=== PATIENT | male | born 1960 | race Caucasian/White ===

== ENCOUNTER 2016-10-23 14:18 | Emergency (ER) | payer BC ==
--- NOTE | 2016-10-23 15:57 | CT ---
Head CT Technique: Multiple axial sections through the brain were obtained. Intravenous contrast was not utilized. Findings: Ventricles along with basal cisterns and sulci over the convexities are within normal limits for the patient's age. No abnormal parenchymal densities are seen. No evidence of intracranial hemorrhage. No midline shift or mass effect is seen. Bone window settings were reviewed which shows no discrete calvarial abnormality. Slight mucosal thickening is noted within the left ethmoid sinus. Mild mucosal thickening is partially visualized within the right maxillary sinus. Impression: 1. Minimal sinus findings likely pre-existing and chronic. 2. No acute intracranial abnormality is identified on noncontrast head CT study. Diagnostic code #2
--- NOTE | 2016-10-23 16:07 | EDM.PDOC ---
ED HPI GENERAL MEDICAL PROBLEM - General Chief Complaint: General Stated Complaint: HEADACHE CHEST PAIN Time Seen by Provider: 10/23/16 14:34 Source of Information: Reports: Patient, RN Notes Reviewed History Limitations: Reports: No Limitations - History of Present Illness INITIAL COMMENTS - FREE TEXT/NARRATIVE: The patient states that he feels "just like crap". He has had a headache, a throbbing/shooting sensation felt in the bilateral temples, on and off for about a month. It is improved with Excedrin migraine. He has felt pain under his left breast, sharp in character, worse with deep breaths, and better if he relaxes, for the past 2 days. He has been experiencing dyspnea for the past 2 days, and feels "wiped out", with no energy, for the past 2 days. He has had nausea, but no vomiting. No diaphoresis. He has been feeling anxious. No recent fever. No recent diarrhea or urinary symptoms. No recent palpitations. The patient states that he has had similar symptoms on and off since his 30s, and states that he had a medical evaluation when he was in his 30s and was told he had pleurisy. The patient does not currently have a PCP. His last general physical exam was 6 years ago, when he was 50 years old. Generalized Pain Score (Numeric/FACES): 3 - Related Data Allergies Allergy/AdvReac Type Severity Reaction Status Date / Time No Known Allergies Allergy Verified 10/23/16 14:29 Home Meds: Home Meds . [No Known Home Meds] 10/23/16 [History] Past Medical History HEENT History: Reports: Allergic Rhinitis Cardiovascular History: Reports: High Cholesterol (untreated) Endocrine/Metabolic History: Reports: Obesity/BMI 30+ - Past Surgical History HEENT Surgical History: Reports: Oral Surgery ([place] teeth extraction), Tonsillectomy Social & Family History - Family History Family Medical History: Noncontributory - Tobacco Use Smoking Status *Q: Current Every Day Smoker Years of Tobacco use: 40 Packs/Tins Daily: 0.5 - Caffeine Use Caffeine Use: Reports: Soda - Alcohol Use Alcohol Use History: Yes Alcohol Use Frequency: Socially - Recreational Drug Use Recreational Drug Use: Yes Drug Use in Last 12 Months: No Recreational Drug Type: Reports: Marijuana/Hashish - Living Situation & Occupation Living situation: Reports: , with Spouse 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) ED ROS GENERAL - Review of Systems Review Of Systems: See Below Constitutional: Reports: No Symptoms HEENT: Reports: Throat Pain Respiratory: Reports: Cough, Sputum (greenish) Cardiovascular: Reports: No Symptoms Endocrine: Reports: No Symptoms GI/Abdominal: Reports: No Symptoms : Reports: No Symptoms Musculoskeletal: Reports: No Symptoms Skin: Reports: No Symptoms Neurological: Reports: No Symptoms Psychiatric: Reports: No Symptoms Hematologic/Lymphatic: Reports: No Symptoms Immunologic: Reports: No Symptoms ED EXAM, GENERAL - Physical Exam Exam: See Below Exam Limited By: No Limitations General Appearance: Alert, WD/WN, No Apparent Distress Eye Exam: Bilateral Eye: Normal Inspection Ears: Normal External Exam, Hearing Grossly Normal Nose: Normal Inspection, No Blood Throat/Mouth: Normal Inspection, Normal Lips, Normal Voice, No Airway Compromise Head: Atraumatic, Normocephalic Neck: Normal Inspection, Full Range of Motion Respiratory/Chest: No Respiratory Distress, Lungs Clear, Normal Breath Sounds, No Accessory Muscle Use, Other (Reproducible tenderness to palpation with one finger at the 6th intercostal space, midclavicular line) Cardiovascular: Normal Peripheral Pulses, Regular Rate, Rhythm, No Gallop, No JVD, No Murmur, No Rub Peripheral Pulses: 4+: Radial (L), Radial (R) GI/Abdominal: Normal Bowel Sounds, Soft, Non-Tender, No Organomegaly, No Distention, No Abnormal Bruit, No Mass (Male) Exam: Deferred Rectal (Males) Exam: Deferred Back Exam: Normal Inspection, Full Range of Motion, NT Extremities: Normal Inspection, Normal Range of Motion, No Pedal Edema, Normal Capillary Refill Neurological: Alert, Oriented, Normal Cognition, No Motor/Sensory Deficits Psychiatric: Normal Affect Skin Exam: Warm, Dry, Intact, Normal Color, No Rash Lymphatic: No Adenopathy EKG INTERPRETATION EKG Date: 10/23/16 Time: 16:03 Rhythm: NSR Rate (Beats/Min): 75 [place]: Normal P-Wave: Present QRS: Normal ST-T: Normal QT: Normal Comparison: NA - No Prior EKG Course - Vital Signs Last Recorded V/S: Last Vital Signs Temp 37.1 C 10/23/16 14:26 Pulse 74 10/23/16 18:43 Resp 21 H 10/23/16 14:26 BP 126/81 08/15/17 18:43 Pulse Ox 97 10/23/16 18:43 - Orders/Labs/Meds Orders: Active Orders 24 hr Category Date Time Status EKG Documentation Completion [RC] STAT Care 10/23/16 15:22 Active Labs: Laboratory Tests 10/23/16 10/23/16 10/23/16 Range/Units 15:42 15:42 15:42 WBC 10.17 H (4.23-9.07) K/mm3 RBC 4.51 L (4.63-6.08) M/mm3 Hgb 14.8 (13.7-17.5) gm/L Hct 42.6 (40.1-51.0) % MCV 94.5 H (79.0-92.2) fl MCH 32.8 H (25.7-32.2) pg MCHC 34.7 (32.2-35.5) g/dl RDW Std Deviation 42.2 (35.1-43.9) fL Plt Count 186 (163-337) K/mm3 MPV 11.0 (9.4-12.3) fl Neutrophils % (Manual) 72 H (40-60) % Band Neutrophils % 0 (0-10) % Lymphocytes % (Manual) 24 (20-40) % Atypical Lymphs % 0 % Monocytes % (Manual) 3 (2-10) % Eosinophils % (Manual) 1 (0.8-7.0) % Basophils % (Manual) 0 L (0.2-1.2) Platelet Estimate Adequate Plt Morphology Comment Normal Anisocytosis 1+ slight RBC Morph Comment Not Reportable ESR (0-15) mm/hr PT 10.4 (8.0-13.0) SECONDS INR 0.96 APTT 29 (22-36) SECONDS D-Dimer, Quantitative 0.23 (0.19-0.59) mg/L Sodium 140 (136-145) mEq/L Potassium 3.9 (3.5-5.1) mEq/L Chloride 105 (98-107) mEq/L Carbon Dioxide 23 (21-32) mEq/L Anion Gap 15.9 H (5-15) BUN 21 H (7-18) mg/dL Creatinine 0.9 (0.7-1.3) mg/dL Est Cr Clr Drug Dosing 103.57 mL/min Estimated GFR (MDRD) > 60 (>60) mL/min BUN/Creatinine Ratio 23.3 H (14-18) Glucose 135 H (74-106) mg/dL Calcium 8.8 (8.5-10.1) mg/dL Total Bilirubin 0.4 (0.2-1.0) mg/dL AST TNP ALT TNP Alkaline Phosphatase 59 (46-116) U/L Troponin I < 0.017 (0.00-0.056) ng/mL C-Reactive Protein < 0.2 (<1.0) mg/dL Glp-R-Epusfwajcra Pept 34 (0-125) pg/mL Total Protein 7.2 (6.4-8.2) g/dl Albumin 4.1 (3.4-5.0) g/dl Globulin 3.1 gm/dL Albumin/Globulin Ratio 1.3 (1-2) / Range/Units 15:42 WBC (4.23-9.07) K/mm3 RBC (4.63-6.08) M/mm3 Hgb (13.7-17.5) gm/L Hct (40.1-51.0) % MCV (79.0-92.2) fl MCH (25.7-32.2) pg MCHC (32.2-35.5) g/dl RDW Std Deviation (35.1-43.9) fL Plt Count (163-337) K/mm3 MPV (9.4-12.3) fl Neutrophils % (Manual) (40-60) % Band Neutrophils % (0-10) % Lymphocytes % (Manual) (20-40) % Atypical Lymphs % % Monocytes % (Manual) (2-10) % Eosinophils % (Manual) (0.8-7.0) % Basophils % (Manual) (0.2-1.2) Platelet Estimate Plt Morphology Comment Anisocytosis RBC Morph Comment ESR 10 (0-15) mm/hr PT (8.0-13.0) SECONDS INR APTT (22-36) SECONDS D-Dimer, Quantitative (0.19-0.59) mg/L Sodium (136-145) mEq/L Potassium (3.5-5.1) mEq/L Chloride (98-107) mEq/L Carbon Dioxide (21-32) mEq/L Anion Gap (5-15) BUN (7-18) mg/dL Creatinine (0.7-1.3) mg/dL Est Cr Clr Drug Dosing mL/min Estimated GFR (MDRD) (>60) mL/min BUN/Creatinine Ratio (14-18) Glucose (74-106) mg/dL Calcium (8.5-10.1) mg/dL Total Bilirubin (0.2-1.0) mg/dL AST ALT Alkaline Phosphatase (46-116) U/L Troponin I (0.00-0.056) ng/mL C-Reactive Protein (<1.0) mg/dL Lis-J-Nbcygexxmel Pept (0-125) pg/mL Total Protein (6.4-8.2) g/dl Albumin (3.4-5.0) g/dl Globulin gm/dL Albumin/Globulin Ratio (1-2) - Re-Assessments/Exams Free Text/Narrative Re-Assessment/Exam: 10/23/16 15:40 Two-view chest radiograph appears to be grossly normal. Cardiac silhouette is within normal limits. No pulmonary vascular congestion. No pleural effusions. No focal infiltrate. No pneumothorax. Formal read per the Radiologist pending. 10/23/16 16:05 CT of the head without contrast is read by Dr. Borges as: 1. Minimal sinus findings likely pre-existing and chronic. 2. No acute intracranial abnormality is identified on noncontrast head CT study. 10/23/16 16:20 Notified by lab that the patient's blood sample is extremely lipemic, which will disallow evaluation of his transaminases, and may cause aberrations of other lab values. 10/23/16 18:17 Test results discussed with the patient and his . Based on the patient's history and physical examination, his left-sided chest pain is most likely due to an intercostal muscle spasm. I offered to prescribe a muscle relaxant, but the patient declined. I'm recommending he take [id number] ibuprofen. The cause of the patient's headache is not clear. It may be a tension type headache. With a normal ESR and CRP, temporal arteritis has been ruled out. Clinically, the patient's headache is not migrainous. As for the patient's general malaise and decreased energy, the patient may be suffering from a viral illness. No bacterial infection was found. With respect to the patient's lipemic blood sample, I will refer the patient to Dr. Orona in the clinic for further evaluation and treatment. Departure - Departure Time of Disposition: 18:19 Disposition: Home, Self-Care 01 Condition: Good Clinical Impression: Lipid disorder, Headache, Intercostal muscle pain, Malaise and fatigue - Discharge Information Instructions: General Headache Without Cause Referrals: PCP,None [Primary Care Provider] - Gloria Orona [Physician] - Forms: ED Department Discharge Additional Instructions: You were seen in the emergency room for generalized malaise, left-sided chest pain, and a headache. Workup in the ER included blood work, an ECG, a chest x-ray, and a CT scan of your head. Your entire workup was unremarkable, although we were notified by laboratory that your blood samples were lipemic (fatty). Your chest pain is MOST LIKELY due to a spasm of the muscles between your ribs. You were offered a muscle relaxant, but declined. We recommend you take over-the -counter ibuprofen. Your headache is MOST LIKELY a tension-type headache. We recommended he take dmhl-rjp-[id number] ibuprofen. The cause of your generalized malaise is not known. You may have a viral illness. We recommend you follow-up with Dr. Orona in the clinic, to address your lipemic blood. If any other problems, please do not hesitate to return to the ER. - My Orders Last 24 Hours: My Active Orders 10/23/16 15:22 EKG Documentation Completion [RC] STAT - Assessment/Plan Last 24 Hours: My Active Orders 10/23/16 15:22 EKG Documentation Completion [RC] STAT
--- NOTE | 2016-10-23 18:30 | CR ---
Chest: Two views of the chest were obtained. Comparison: No previous chest x-ray. Heart size and mediastinum are within normal limits. Lungs are clear. Bony structures appear within normal limits for the patient's age. Impression: 1. Nothing acute is identified on two-view chest x-ray. Diagnostic code #1
[2016-10-23 19:27] VITALS: BP 126/81
== END 2016-10-23 18:43 | disposition home or self-care (01) ==
LOC: JD.ED 14:18
DX: R51 Headache (principal); R07.82 Intercostal pain; E78.5 Hyperlipidemia, unspecified; R53.81 Other malaise; R53.83 Other fatigue; E78.00 Pure hypercholesterolemia, unspecified; F17.210 Nicotine dependence, cigarettes, uncomplicated; E66.9 Obesity, unspecified; Z98.890 Other specified postprocedural states
CPT/HCPCS: 36415; 70450; 70450-26; 71020; 71020-26; 80053; 83880; 84484; 85025; 85379; 85610; 85652; 85730; 86140; 93005; 99284; 99285-25

== ENCOUNTER 2016-11-28 06:45 | Day surgery (SDC) | payer BC ==
[~2016-11-28 06:45] MED LIST: Lactated Ringers 1,000 ML IV SCH; Lidocaine 1%/Sod Bicarbonate in NS 8.4% 1 ML Syringe PRN; Sodium Chloride 0.9% 10 ML Syringe FLUSH PRN
--- NOTE | 2016-11-28 07:27 | PCM.PREANE ---
Preanesthetic Assessment - Procedure Proposed Procedure: Diagnostic colonoscopy - Anesthesia/Transfusion/Family Hx Anesthesia History: No Prior Anesthesia Family History of Anesthesia Reaction: No Transfusion History: No Prior Transfusion(s) - Review of Systems General: No Symptoms Pulmonary: No Symptoms Cardiovascular: Other (hyperlipidemia ) Gastrointestinal: No Symptoms Neurological: No Symptoms Other: Reports: None - Physical Assessment NPO Status Date: 11/27/16 NPO Status Time: 22:30 O2 Sat by Pulse Oximetry: 94 Respiratory Rate: 16 Vital Signs: Last Vital Signs Temp 36.7 C 11/28/16 07:00 Pulse 74 11/28/16 07:00 Resp 16 11/28/16 07:00 BP 134/86 11/28/16 07:00 Pulse Ox 94 L 11/28/16 07:00 Height: 1.85 m Weight: 107.955 kg ASA Class: 2 Mental Status: Alert & Oriented x3 Airway Class: Mallampati = 3 Dentition: Reports: Normal Dentition Thyro-Mental Finger Breadths: 3 Mouth Opening Finger Breadths: 3 ROM/Head Extension: Full Lungs: Clear to Auscultation, Normal Respiratory Effort Cardiovascular: Regular Rate, Regular Rhythm - Allergies Allergies/Adverse Reactions: Allergies Allergy/AdvReac Type Severity Reaction Status Date / Time No Known Allergies Allergy Verified 11/27/16 14:43 - Blood Blood Available: No Product(s) Available: None - Anesthesia Plan Pre-Op Medication Ordered: None - Acknowledgements Anesthesia Type Planned: MAC Pt an Appropriate Candidate for the Planned Anesthesia: Yes Alternatives and Risks of Anesthesia Discussed w Pt/Guardian: Yes Pt/Guardian Understands and Agrees with Anesthesia Plan: Yes PreAnesthesia Questionnaire HEENT History: Reports: None Cardiovascular History: Reports: High Cholesterol Other Cardiovascular History: Pleurisy Respiratory History: Reports: None Gastrointestinal History: Reports: None Genitourinary History: Reports: None Musculoskeletal History: Reports: Other (See Below) Other Musculoskeletal History: Costochondritis Neurological History: Reports: Headaches, Chronic, Migraines Psychiatric History: Reports: None Endocrine/Metabolic History: Reports: None Hematologic History: Reports: None Immunologic History: Reports: None Oncologic (Cancer) History: Reports: None Dermatologic History: Reports: None - Infectious Disease History Infectious Disease History: Reports: None - Past Surgical History HEENT Surgical History: Reports: Tonsillectomy Cardiovascular Surgical History: Reports: None Respiratory Surgical History: Reports: None GI Surgical History: Reports: None Male Surgical History: Reports: Vasectomy Endocrine Surgical History: Reports: None Neurological Surgical History: Reports: None Musculoskeletal Surgical History: Reports: None Oncologic Surgical History: Reports: None Dermatological Surgical History: Reports: None - SUBSTANCE USE Smoking Status *Q: Current Every Day Smoker (41 years 0.5ppd) Tobacco Use Within Last Twelve Months: Cigarettes Second Hand Smoke Exposure: No Recreational Drug Use History: No Recreational Drug Type: Reports: Marijuana/Hashish - HOME MEDS Home Medications: Home Meds Rosuvastatin Calcium 10 mg PO BEDTIME 11/27/16 [History] - CURRENT (IN HOUSE) MEDS Current Meds: Current Medications Lactated Ringer's (Ringers, Lactated) 1,000 mls @ 125 mls/hr IV ASDIRECTED ADAM Stop: 11/28/16 23:00 Last Admin: 11/28/16 07:10 Dose: 125 mls/hr Lidocaine/Sodium Bicarbonate (Buffered Lidocaine 1% In Ns 8.4%) 0.25 ml .XX ONETIME PRN PRN Reason: Prior to IV Start Stop: 11/28/16 18:00 Last Admin: 11/28/16 07:10 Dose: 0.25 ml Sodium Chloride (Saline Flush) 10 ml FLUSH ASDIRECTED PRN PRN Reason: Keep Vein Open Stop: 11/28/16 18:00 Discontinued Medications Fentanyl (Sublimaze) Confirm Administered Dose 100 mcg .ROUTE .STK-MED ONE Stop: 11/28/16 07:33 Propofol (Diprivan 20 Ml) Confirm Administered Dose 200 mg .ROUTE .STK-MED ONE Stop: 11/28/16 07:33
[2016-11-28] MEDS ORDERED: fentaNYL 100 MCG/2 ML SDV ONE (07:32)
[2016-11-28] MEDS ORDERED: Propofol 200 MG/20 ML SDV ONE ×2 (07:32→08:38)
--- NOTE | 2016-11-28 08:29 | PCM48HPAN ---
Post Anesthesia Note - EVALUATION WITHIN 48HRS OF ANESTHETIC Vital Signs in Normal Range: Yes Patient Participated in Evaluation: Yes Respiratory Function Stable: Yes Airway Patent: Yes Cardiovascular Function Stable: Yes Hydration Status Stable: Yes Pain Control Satisfactory: Yes Nausea and Vomiting Control Satisfactory: Yes Mental Status Recovered: Yes
--- NOTE | 2016-11-28 08:35 | PCM.OPNOTE ---
- General Post-Op/Procedure Note Date of Surgery/Procedure: 11/28/16 Operative Procedure(s): Colonoscopy Findings: 1. Sigmoid diverticulosis -- uncomplicated; otherwise normal examination 2. Uncomplicated internal hemorrhoids Pre Op Diagnosis: Bright red blood per rectum Post-Op Diagnosis: 1. Sigmoid diverticulosis. 2. Uncomplicated internal hemorrhoids Anesthesia Technique: MAC, Moderate Sedation Primary Surgeon: Kendall Wild Pathology: None EBL in mLs: 0 Complications: None Condition: Good Free Text/Narrative:: After adequate IV sedation and analgesia was obtained with monitoring the patient was placed on his left side. Perianal inspection revealed the internal hemorrhoids. Digital rectal examination was otherwise unremarkable including an unremarkable prostate. A lubricated colonoscope was inserted into the rectum and advanced to the cecum without difficulty. The bowel preparation was excellent. The cecum, ascending colon, transverse and descending colons, were endoscopically normal with no mass lesion or inflammatory changes seen. The sigmoid had uncomplicated diverticuli as described above. The rectum was remarkable for internal hemorrhoids which were seen in the retroflexed view. Photographs were taken for the patient and for the medical record. Air was removed as I finished the procedure which he tolerated well.
[2016-11-28 09:28] VITALS: BP 121/81
== END 2016-11-28 09:15 | disposition home or self-care (01) ==
LOC: JD.SDS 06:45
PROVIDERS: ATTEND Surgery
PROC: 0DJD8ZZ Inspection of Lower Intestinal Tract, Via Natural or Artificial Opening Endoscopic (ICD-10-PCS; principal; 2016-11-28)
DX: K57.30 Diverticulosis of large intestine without perforation or abscess without bleeding (principal); K64.8 Other hemorrhoids; E78.5 Hyperlipidemia, unspecified; M94.0 Chondrocostal junction syndrome [Tietze]; F17.210 Nicotine dependence, cigarettes, uncomplicated; Z79.899 Other long term (current) drug therapy; Z90.89 Acquired absence of other organs; Z98.52 Vasectomy status
CPT/HCPCS: 45378; J3010; J7120; 00810; J2704

== ENCOUNTER 2018-04-03 17:04 | Inpatient (IN) | payer BC ==
[2018-04-03] MEDS ORDERED: cefTRIAXone 2 GM Vial IVPUSH SCH ×2 (18:00→20:00)
[2018-04-03] MEDS ORDERED: Dextrose 5%-0.45% NaCl 1,000 ML IV SCH (18:15)
[2018-04-03] MEDS ORDERED: Polyethylene Glycol 3350 Powder 17 GM Packet PO PRN (18:31)
[2018-04-03] MEDS ORDERED: Temazepam 7.5 MG Cap PO PRN (18:31)
[2018-04-03] MEDS ORDERED: Ondansetron 4 MG Tab.DIS PO PRN (18:31)
[2018-04-03] MEDS ORDERED: Bisacodyl 5 MG Tab PO PRN (18:31)
[2018-04-03] MEDS ORDERED: Ondansetron 4 MG/2 ML SDV IV PRN (18:31)
[2018-04-03] MEDS ORDERED: Docusate Sodium 100 MG Cap PO PRN (18:31)
[2018-04-03] MEDS ORDERED: 50% Dextrose in Water 50 ML Syringe IVPUSH PRN (18:38)
[2018-04-03] MEDS ORDERED: Metoprolol Tartrate 5 MG/5 ML SDV IVPUSH PRN (18:48)
[2018-04-03] MEDS ORDERED: hydrALAZINE 20 MG/ML SDV IVPUSH PRN (18:48)
--- NOTE | 2018-04-03 19:03 | PCM.HP ---
H&P History of Present Illness - General Date of Service: 04/03/18 Admit Problem/Dx: Admission Diagnosis/Problem Admission Diagnosis/Problem Pancreatitis Admission Diagnosis/Problem Pancreatitis Source of Information: Patient History Limitations: Reports: No Limitations - History of Present Illness Initial Comments - Free Text/Narative: This is a 57 yo male with past medical h/o HLD, diverticulosis who is a direct admit from clinic for pancreatitis. He has LLQ abdominal pain x 4 days- describes as constant and crampy, with movement making it worse. He also c/o constipation, decreased appetite, nausea. He denies F/C, vomiting, diarrhea, bloody stool. He denies similar pain in the past, no recent illness, no new foods. He is a social drinker. He has no history of abdominal surgery or gallstones. Initial labs obtained at clinic. CBC remarkable for WBC 13.1, RBC 4.31, Neut 74% , Lymph 12.9%, [place] 10.6%. His chemistry is remarkable for Glu 121, Cr 0.7. UA not impressive for UTI. CT Ab/pelvis at clinic shows pancreas remarkable for peripancreatic inflammation consistent with pancreatitis, stranding in the peripancreatic at is also present with no evidence of pseudocyst. He is subsequently admitted to the medical floor. He is a DNR/DNI. PCP is Dr. Lisa Aguilar. - Related Data Allergies/Adverse Reactions: Allergies Allergy/AdvReac Type Severity Reaction Status Date / Time No Known Allergies Allergy Verified 11/27/16 14:43 Home Medications: Home Meds Ascorbic Acid [Vitamin C] 1,000 mg PO DAILY 04/03/18 [History] Cholecalciferol (Vitamin D3) [Vitamin D3] 2,000 unit PO DAILY 04/03/18 [History] Fish Oil/[place]-3 Fatty Acids [Fish Oil] 1 each PO DAILY 04/03/18 [History] Methylsulfonylmethane [MSM] DAILY 04/03/18 [History] Multivitamin [Cwp-Fuodjf-Mxpgy] 1 each PO DAILY 04/03/18 [History] Past Medical History HEENT History: Reports: None, Hard of Hearing, Other (See Below) Other HEENT History: right sided hearing impaired Cardiovascular History: Reports: High Cholesterol Other Cardiovascular History: no medication Respiratory History: Reports: None Gastrointestinal History: Reports: Diverticulosis, Hemorrhoids, Pancreatitis Other Gastrointestinal History: Current diagnosis Pancreatitis Genitourinary History: Reports: None Musculoskeletal History: Reports: Arthritis, Other (See Below) Other Musculoskeletal History: Costochondritis Neurological History: Reports: Headaches, Chronic, Migraines Psychiatric History: Reports: None Endocrine/Metabolic History: Reports: None Hematologic History: Reports: None Immunologic History: Reports: None Oncologic (Cancer) History: Reports: None Dermatologic History: Reports: None - Infectious Disease History Infectious Disease History: Reports: Chicken Pox - Past Surgical History HEENT Surgical History: Reports: Tonsillectomy Cardiovascular Surgical History: Reports: None Respiratory Surgical History: Reports: None GI Surgical History: Reports: Colonoscopy Male Surgical History: Reports: Vasectomy Endocrine Surgical History: Reports: None Neurological Surgical History: Reports: None Musculoskeletal Surgical History: Reports: None Oncologic Surgical History: Reports: None Dermatological Surgical History: Reports: None Social & Family History - Family History Family Medical History: Noncontributory - Tobacco Use Smoking Status *Q: Former Smoker Years of Tobacco use: 43 Packs/Tins Daily: 5 Used Tobacco, but Quit: Yes Month/Year Tobacco Last Used: quit 2 weeks ago, Tobacco Use Comment: patient refuses nicotine patch but uses nicotine lozenge, will need to be checked by pharmacy Second Hand Smoke Exposure: No - Caffeine Use Caffeine Use: Reports: Soda - Alcohol Use Days Per Week of Alcohol Use: 3 Number of Drinks Per Day: 2 Total Drinks Per Week: 6 Date of Last Drink: 03/29/18 Time of Last Drink: 14:30 - Recreational Drug Use Recreational Drug Use: No - Living Situation & Occupation Living situation: Reports: , with Spouse 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 Denies: Fever, Chills HEENT: Reports: No Symptoms Pulmonary: Reports: No Symptoms. Denies: Shortness of Breath, Cough Cardiovascular: Reports: No Symptoms. Denies: Chest Pain, Blood Pressure Problem Gastrointestinal: Reports: Abdominal Pain (LLQ ), Constipation (last BM 4 days ago), Decreased Appetite, Nausea. Denies: Bloody Stool, Diarrhea, Vomiting Genitourinary: Reports: No Symptoms Musculoskeletal: Reports: No Symptoms Skin: Reports: No Symptoms Psychiatric: Reports: No Symptoms Neurological: Reports: No Symptoms Hematologic/Lymphatic: Reports: No Symptoms Immunologic: Reports: No Symptoms Exam - Exam Exam: See Below - Vital Signs Weight: 249 lb 1.6 oz - Exam Quality Assessment: DVT Prophylaxis General: Alert, Oriented, Cooperative, Moderate Distress HEENT: Conjunctiva Clear, EACs Clear, EOMI, Hearing Intact, Mucosa Moist & [place] , Nares Patent, Normal Nasal Septum, Posterior Pharynx Clear, PERRLA Neck: Supple, Trachea Midline, 2 Lungs: Clear to Auscultation, Normal Respiratory Effort Cardiovascular: Regular Rate, Regular Rhythm GI/Abdominal Exam: Normal Bowel Sounds, Soft, No Organomegaly, No Distention, No Abnormal Bruit, No Mass, Pelvis Stable, Tender (LLQ). No: Guarding, Rebound (Male) Exam: Deferred Rectal (Males) Exam: Deferred Back Exam: Normal Inspection, Full Range of Motion, NT Extremities: Normal Inspection, Normal Range of Motion, Non-Tender, No Pedal Edema, Normal Capillary Refill Peripheral Pulses: 2+: Posterior Tibial (L), Posterior Tibial (R), Dorsalis Pedis (L), Dorsalis Pedis (R) Skin: Warm, Dry, Intact Neurological: Cranial Nerves Intact (grossly) Neuro Extensive - Mental Status: Alert, Oriented x3, Normal Mood/Affect, Normal Cognition, Memory Intact Psychiatric: Alert, Normal Affect, Normal Mood - Problem List (1) Pancreatitis SNOMED Code(s): 97682692 ICD Code: K85.90 - ACUTE PANCREATITIS WITHOUT NECROSIS OR INFECTION, UNSP Status: Acute Priority: High Current Visit: Yes Qualifiers: Chronicity: acute Pancreatitis type: unspecified pancreatitis type Acute pancreatitis complication: unspecified Qualified Code(s): K85.90 - Acute pancreatitis without necrosis or infection, unspecified Problem List Initiated/Reviewed/Updated: Yes Orders Last 24hrs: Active Orders 24 hr Category Date Time Status Patient Status [ADT] Routine ADT 04/03/18 18:08 Active Antiembolic Devices [RC] PER UNIT ROUTINE Care 04/03/18 18:35 Active Blood Glucose Check, Bedside [RC] QIDACANDBED Care 04/03/18 18:37 Active Height and Weight [RC] DAILY Care 04/03/18 18:08 Active Intake and Output [RC] QSHIFT Care 04/03/18 18:10 Active May Shower [RC] ASDIRECTED Care 04/03/18 18:08 Active Notify Provider Consults [RC] ASDIRECTED Care 04/03/18 18:36 Active Oxygen Therapy [RC] PRN Care 04/03/18 18:08 Active Up ad Essie [RC] ASDIRECTED Care 04/03/18 18:08 Active VTE/DVT Education [RC] PER UNIT ROUTINE Care 04/03/18 18:08 Active Vital Signs [RC] Q4H Care 04/03/18 18:08 Active Consult to Network Control Supervisor [CONS] Routine Cons 04/03/18 18:31 Active Consult to Physician [CONS] Routine Cons 04/03/18 18:31 Active Nothing per Oral Now Diet [DIET] Diet 04/03/18 Dinner Active Abdomen Comp [US] Routine Exams 04/04/18 09:00 Ordered C-REACTIVE PROTEIN [CHEM] AM Lab 04/04/18 05:11 Ordered C-REACTIVE PROTEIN [CHEM] AM Lab 04/05/18 05:11 Ordered C-REACTIVE PROTEIN [CHEM] AM Lab 04/06/18 05:11 Ordered C-REACTIVE PROTEIN [CHEM] AM Lab 04/07/18 05:11 Ordered C-REACTIVE PROTEIN [CHEM] AM Lab 04/08/18 05:11 Ordered CBC WITH AUTO DIFF [HEME] AM Lab 04/04/18 05:11 Ordered CBC WITH AUTO DIFF [HEME] AM Lab 04/05/18 05:11 Ordered CBC WITH AUTO DIFF [HEME] AM Lab 04/06/18 05:11 Ordered CBC WITH AUTO DIFF [HEME] AM Lab 04/07/18 05:11 Ordered CBC WITH AUTO DIFF [HEME] AM Lab 04/08/18 05:11 Ordered COMPREHENSIVE METABOLIC PN,CMP [CHEM] AM Lab 04/04/18 05:11 Ordered COMPREHENSIVE METABOLIC PN,CMP [CHEM] AM Lab 04/05/18 05:11 Ordered COMPREHENSIVE METABOLIC PN,CMP [CHEM] AM Lab 04/06/18 05:11 Ordered COMPREHENSIVE METABOLIC PN,CMP [CHEM] AM Lab 04/07/18 05:11 Ordered COMPREHENSIVE METABOLIC PN,CMP [CHEM] AM Lab 04/08/18 05:11 Ordered CULTURE URINE [RM] Routine Lab 04/03/18 18:39 Ordered LIPASE [CHEM] AM Lab 04/04/18 05:11 Ordered LIPASE [CHEM] AM Lab 04/05/18 05:11 Ordered LIPASE [CHEM] AM Lab 04/06/18 05:11 Ordered LIPASE [CHEM] AM Lab 04/07/18 05:11 Ordered LIPASE [CHEM] AM Lab 04/08/18 05:11 Ordered LIPID PANEL [CHEM] AM Lab 04/04/18 05:11 Ordered MAGNESIUM [CHEM] AM Lab 04/04/18 05:11 Ordered MAGNESIUM [CHEM] AM Lab 04/05/18 05:11 Ordered MAGNESIUM [CHEM] AM Lab 04/06/18 05:11 Ordered MAGNESIUM [CHEM] AM Lab 04/07/18 05:11 Ordered MAGNESIUM [CHEM] AM Lab 04/08/18 05:11 Ordered UA W/MICROSCOPIC [URIN] Stat Lab 04/03/18 18:39 Ordered Acetaminophen [Tylenol] Med 04/03/18 18:22 Active 650 mg PO Q4H PRN Acetaminophen/HYDROcodone [[place] 325-5 MG] Med 04/03/18 18:31 Active 1 tab PO Q4H PRN Bisacodyl [Dulcolax] Med 04/03/18 18:31 Active 5 mg PO DAILY PRN Dextrose 5%-0.45% NaCl [Dextrose 5%-1/2 NS] 1,000 ml Med 04/03/18 18:15 Active IV ASDIRECTED Dextrose 50% in Water Med 04/03/18 18:38 Active 50 ml IVPUSH ASDIRECTED PRN Docusate Sodium [Colace] Med 04/03/18 18:31 Ordered 100 mg PO BID PRN Docusate Sodium/Sennosides [Senna Plus] Med 04/03/18 18:31 Ordered 1 tab PO BID PRN Famotidine [Pepcid] Med 04/04/18 09:00 Ordered 20 mg IVPUSH DAILY HYDROmorphone [Dilaudid] Med 04/03/18 18:31 Ordered 0.25 mg IVPUSH Q2H PRN Insulin Lispro [HumaLOG] Med 04/03/18 22:00 Ordered See Protocol SUBCUT QIDACANDBED Magnesium Hydroxide [Milk of Magnesia] Med 04/03/18 18:31 Ordered 30 ml PO Q12H PRN Metoprolol Tartrate [Lopressor] Med 04/03/18 18:48 Ordered 5 mg IVPUSH Q4H PRN Ondansetron [Zofran ODT] Med 04/03/18 18:31 Ordered 4 mg PO Q4H PRN Ondansetron [Zofran] Med 04/03/18 18:31 Ordered 4 mg IV Q4H PRN Polyethylene Glycol 3350 [MiraLAX] Med 04/03/18 18:31 Ordered 17 gm PO DAILY PRN Saccharomyces Boulardii [Florastor] Med 04/03/18 21:00 Ordered 250 mg PO BID Temazepam [Restoril] Med 04/03/18 18:31 Ordered 7.5 mg PO BEDTIME PRN cefTRIAXone [Rocephin] Med 04/03/18 18:00 Active 2 gm IVPUSH Q24H hydrALAZINE [Apresoline] Med 04/03/18 18:48 Ordered 10 mg IVPUSH Q4H PRN Sequential Compression Device [OM.PC] Per Unit Routine Oth 04/03/18 18:14 Ordered Resuscitation Status Routine Resus Stat 04/03/18 18:26 Ordered Medication Orders Acetaminophen (Tylenol) 650 mg PO Q4H PRN PRN Reason: Pain (Mild 1-3)/fever Hydrocodone Bitart/Acetaminophen ([place] 325-5 Mg) 1 tab PO Q4H PRN PRN Reason: Pain (moderate 4-6) Bisacodyl (Dulcolax) 5 mg PO DAILY PRN PRN Reason: Constipation Ceftriaxone Sodium (Rocephin) 2 gm IVPUSH Q24H [facility] Dextrose/Water (Dextrose 50% In Water) 50 ml IVPUSH ASDIRECTED PRN PRN Reason: Hypoglycemia Docusate Sodium (Colace) 100 mg PO BID PRN PRN Reason: Constipation Famotidine (Pepcid) 20 mg IVPUSH DAILY [facility] Hydralazine HCl (Apresoline) 10 mg IVPUSH Q4H PRN PRN Reason: Hypertension Hydromorphone HCl (Dilaudid) 0.25 mg IVPUSH Q2H PRN PRN Reason: Pain (severe 7-10) Dextrose/Sodium Chloride (Dextrose 5%-1/2 Ns) 1,000 mls @ 125 mls/hr IV ASDIRECTED [facility] Insulin Human Lispro (Humalog) 0 unit SUBCUT QIDACANDBED [facility]; Protocol Magnesium Hydroxide (Milk Of Magnesia) 30 ml PO Q12H PRN PRN Reason: Constipation Metoprolol Tartrate (Lopressor) 5 mg IVPUSH Q4H PRN PRN Reason: Tachycardia Ondansetron HCl (Zofran Odt) 4 mg PO Q4H PRN PRN Reason: nausea, able to take PO Ondansetron HCl (Zofran) 4 mg IV Q4H PRN PRN Reason: Nausea/Vomiting Polyethylene Glycol (Miralax) 17 gm PO DAILY PRN PRN Reason: Constipation Saccharomyces Boulardii (Florastor) 250 mg PO BID ADAM Senna/Docusate Sodium (Senna Plus) 1 tab PO BID PRN PRN Reason: Constipation Temazepam (Restoril) 7.5 mg PO BEDTIME PRN PRN Reason: Sleep Assessment/Plan Comment:: Assessment/Plan: Acute: Acute Pancreatitis * Risk factor: EtOH, h/o HLD * LLQ abdominal pain x 4 days; movement makes worse * He denies similar pain in the past, no recent illness, no new foods * He is a social drinker * He has no previous h/o abdominal surgery or gallstones * Afebrile, WBC 13.1 * CT Ab/pelvis at clinic 04/03/18: * Inflamed pancreas with peripancreatic stranding with fluid. Associated retroperitoneal lymphadenopathy is present. * Hepatic steatosis * No evidence of appendicitis or diverticulitis * Lipid panel pending * Recommend starting Statin if needed * EtOH pending * Lipase pending * U/S Abdomen to r/o gallstone pending * Consult General Surgeon Dr. Lynn * NPO; IVF * Pain management PRN Constipation * Likely 2/2 decreased intake * Advance diet as tolerated * Stool softener/laxatives PRN Chronic: HLD; not currently on medication Diverticulosis- colonoscopy 18mo ago Plan: Admit to Medical Floor Routine AM Labs NPO, IVF DVT/GI prophylaxis Code Status: DNR/DNI; PCP: Dr. Lisa Aguilar
[2018-04-03] MEDS: HYDROmorphone 1 MG/ML Syringe IVPUSH PRN (19:12)
[2018-04-03] MEDS: Magnesium Hydroxide 400 MG/5 ML Susp 30 ML Cup PO PRN (20:40)
[2018-04-03] MEDS: cefTRIAXone 2 GM in Sodium Chloride 0.9% 100 ML IV SCH (20:40)
[2018-04-03] MEDS: Dextrose 5%-0.45% NaCl 1,000 ML IV SCH (20:40)
[2018-04-03] MEDS: Saccharomyces Boulardii (Probiotic) 250 MG Cap PO SCH (20:41)
[2018-04-04] MEDS: Insulin Lispro 100 Unit/ML 3 ML KwikPen SUBCUT SCH ×2 (03:49→06:31)
[2018-04-04] MEDS: Dextrose 5%-0.45% NaCl 1,000 ML IV SCH (04:42)
[2018-04-04] MEDS: HYDROmorphone 1 MG/ML Syringe IVPUSH PRN (04:54)
--- NOTE | 2018-04-04 06:56 | CONS ---
CONSULTING PHYSICIAN: Khoa Lynn MD DATE OF CONSULTATION: 04/03/2018 HISTORY OF PRESENT ILLNESS: This is a 57-year-old patient with abdominal pain. I was asked to see. He stated that the abdominal pain began Saturday about 5 days ago. It was started in the afternoon, it was intermittent and then Saturday it was constant and steady pain located just below the umbilicus in the midline without any radiation. The pain persisted after some coaching from his and daughter. He came into the walk-in clinic today and he was worked up. He was found on CT scan that he had pancreatitis, although his amylase was normal at 57. The patient states that he is beginning to notice pain when hitting the bumps in the car in the abdomen and that the appetite was poor and he is feeling some abdominal bloating and some constipation. Denied any chills or fever and vomiting and states that he has not ever had this pain before. He states that he drinks socially 2 or 3 drinks about twice a week. 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 No smoking. He has smoked marijuana for many many years. MEDICATIONS: None. FAMILY HISTORY: Negative for gallstones. REVIEW OF SYSTEMS: No chest pain or shortness of breath, cough, hoarseness, wheezing, fever, or chills. No diarrhea. Does have constipation. There was no radiation of the pain. He has some nausea. No vomiting and no lower extremity swelling or edema. SOCIAL HISTORY: The patient does not smoke. PHYSICAL EXAMINATION: GENERAL: Reveals alert and cooperative male. VITAL SIGNS: Temperature afebrile. Pulse in the 90s. EYES: Sclerae white. Extraocular muscle motion normal. ORAL CAVITY: Healthy mucous membrane with mouth and tongue. NECK: Supple. No nodes. No thyromegaly. Trachea midline. LUNGS: Clear. Normal breath sounds and no dullness in the base. BACK: No tenderness on palpation of the back and the flank. HEART: Heart tones regular rate. No S3, S4, jugular venous distention or murmurs. ABDOMEN: Shows exquisite tenderness in the epigastrium, right upper quadrant. No umbilical, inguinal hernias, ventral hernias. Lower abdomen is unremarkable. EXTREMITIES: Upper and lower extremities; no angulation deformities. No sensorineural deficit. No edema. PSYCHIATRIC: Normal. SKIN: Warm and dry. DIAGNOSTIC DATA: Laboratory data shows calcium is normal. Bilirubin and liver enzymes are normal. CT scan shows stranding around the appendix and some fatty infiltrated liver. ASSESSMENT: Pancreatitis. Cause not clear at this time. PLAN: We will follow with you. CHARLES /[id number]
--- NOTE | 2018-04-04 08:00 | PCM.CONSN ---
- General Info Date of Service: 04/04/18 Functional Status: Reports: Pain Controlled - Review of Systems General: Reports: No Symptoms Pulmonary: Reports: No Symptoms Gastrointestinal: Reports: Abdominal Pain (improved with pain medications ) - Patient Data Vitals - Most Recent: Last Vital Signs Temp 98.9 F 04/03/18 20:54 Pulse 83 04/03/18 20:54 Resp 16 04/03/18 20:54 BP 141/85 H 04/03/18 20:54 Pulse Ox 94 L 04/03/18 20:54 Weight - Most Recent: 110.858 kg I&O - Last 24 Hours: Intake & Output 04/03/18 04/03/18 04/04/18 15:59 23:59 07:59 Intake Total 1045 Output Total 825 Balance 220 Lab Results Last 24 Hours: Laboratory Results - last 24 hr 04/03/18 04/03/18 04/03/18 Range/Units 20:14 21:55 23:40 WBC (4.23-9.07) K/mm3 RBC (4.63-6.08) M/mm3 Hgb (13.7-17.5) gm/L Hct (40.1-51.0) % MCV (79.0-92.2) fl MCH (25.7-32.2) pg MCHC (32.2-35.5) g/dl RDW Std Deviation (35.1-43.9) fL Plt Count (163-337) K/mm3 MPV (9.4-12.3) fl Neut % (Auto) (34.0-67.9) % Lymph % (Auto) (21.8-53.1) % [place] % (Auto) (5.3-12.2) % Eos % (Auto) (0.8-7.0) Baso % (Auto) (0.1-1.2) % Neut # (Auto) (1.78-5.38) K/mm3 Lymph # (Auto) (1.32-3.57) K/mm3 [place] # (Auto) (0.30-0.82) K/mm3 Eos # (Auto) (0.04-0.54) K/mm3 Baso # (Auto) (0.01-0.08) K/mm3 Sodium (136-145) mEq/L Potassium (3.5-5.1) mEq/L Chloride (98-107) mEq/L Carbon Dioxide (21-32) mEq/L Anion Gap (5-15) BUN (7-18) mg/dL Creatinine (0.7-1.3) mg/dL Est Cr Clr Drug Dosing mL/min Estimated GFR (MDRD) (>60) mL/min BUN/Creatinine Ratio (14-18) Glucose (74-106) mg/dL POC Glucose 116 H (70-105) mg/dL Calcium (8.5-10.1) mg/dL Magnesium (1.8-2.4) mg/dl Total Bilirubin (0.2-1.0) mg/dL AST (15-37) U/L ALT (16-63) U/L Alkaline Phosphatase (46-116) U/L C-Reactive Protein (<1.0) mg/dL Total Protein (6.4-8.2) g/dl Albumin (3.4-5.0) g/dl Globulin gm/dL Albumin/Globulin Ratio (1-2) Triglycerides (<150) mg/dL Cholesterol (<200) mg/dL LDL Cholesterol Direct (<100) mg/dL HDL Cholesterol (40-59) mg/dL Lipase (73-393) U/L Urine Color Yellow (Yellow) Urine Appearance Slt cloudy H (Clear) Urine pH 7.0 (5.0-8.0) Ur Specific [place] 1.015 (1.005-1.030) Urine Protein 1+ H (Negative) Urine Glucose (UA) Negative (Negative) Urine Ketones Negative (Negative) Urine Occult Blood Trace-intact H (Negative) Urine Nitrite Negative (Negative) Urine Bilirubin Negative (Negative) Urine Urobilinogen 4.0 H (0.2-1.0) Ur Leukocyte Esterase Negative (Negative) Urine RBC 0-5 (0-5) /hpf Urine WBC 0-5 (0-5) /hpf Ur Epithelial Cells 0-5 (0-5) /hpf Ur Squamous Epith Cells 0-5 (0-5) /hpf Urine Bacteria Not seen (FEW) /hpf Urine Mucus Not seen (FEW) /hpf Ethyl Alcohol 0.00 (0.00) gm% 04/04/18 04/04/18 04/04/18 Range/Units 05:30 05:30 06:26 WBC 10.92 H (4.23-9.07) K/mm3 RBC 3.97 L (4.63-6.08) M/mm3 Hgb 12.6 L (13.7-17.5) gm/L Hct 38.4 L (40.1-51.0) % MCV 96.7 H (79.0-92.2) fl MCH 31.7 (25.7-32.2) pg MCHC 32.8 (32.2-35.5) g/dl RDW Std Deviation 42.6 (35.1-43.9) fL Plt Count 194 (163-337) K/mm3 MPV 11.2 (9.4-12.3) fl Neut % (Auto) 74.2 H (34.0-67.9) % Lymph % (Auto) 10.4 L (21.8-53.1) % [place] % (Auto) 12.0 (5.3-12.2) % Eos % (Auto) 2.9 (0.8-7.0) Baso % (Auto) 0.3 (0.1-1.2) % Neut # (Auto) 8.10 H (1.78-5.38) K/mm3 Lymph # (Auto) 1.14 L (1.32-3.57) K/mm3 [place] # (Auto) 1.31 H (0.30-0.82) K/mm3 Eos # (Auto) 0.32 (0.04-0.54) K/mm3 Baso # (Auto) 0.03 (0.01-0.08) K/mm3 Sodium 137 (136-145) mEq/L Potassium 3.6 (3.5-5.1) mEq/L Chloride 102 (98-107) mEq/L Carbon Dioxide 25 (21-32) mEq/L Anion Gap 13.6 (5-15) BUN 13 (7-18) mg/dL Creatinine 0.8 (0.7-1.3) mg/dL Est Cr Clr Drug Dosing 115.13 mL/min Estimated GFR (MDRD) > 60 (>60) mL/min BUN/Creatinine Ratio 16.3 (14-18) Glucose 146 H (74-106) mg/dL POC Glucose 165 H (70-105) mg/dL Calcium 8.5 (8.5-10.1) mg/dL Magnesium 2.2 (1.8-2.4) mg/dl Total Bilirubin 0.5 (0.2-1.0) mg/dL AST 20 (15-37) U/L ALT 40 (16-63) U/L Alkaline Phosphatase 62 (46-116) U/L C-Reactive Protein 14.1 H* (<1.0) mg/dL Total Protein 7.2 (6.4-8.2) g/dl Albumin 3.1 L (3.4-5.0) g/dl Globulin 4.1 gm/dL Albumin/Globulin Ratio 0.8 L (1-2) Triglycerides 221 H (<150) mg/dL Cholesterol 197 (<200) mg/dL LDL Cholesterol Direct 142 H* (<100) mg/dL HDL Cholesterol 25.0 L (40-59) mg/dL Lipase 218 (73-393) U/L Urine Color (Yellow) Urine Appearance (Clear) Urine pH (5.0-8.0) Ur Specific [place] (1.005-1.030) Urine Protein (Negative) Urine Glucose (UA) (Negative) Urine Ketones (Negative) Urine Occult Blood (Negative) Urine Nitrite (Negative) Urine Bilirubin (Negative) Urine Urobilinogen (0.2-1.0) Ur Leukocyte Esterase (Negative) Urine RBC (0-5) /hpf Urine WBC (0-5) /hpf Ur Epithelial Cells (0-5) /hpf Ur Squamous Epith Cells (0-5) /hpf Urine Bacteria (FEW) /hpf Urine Mucus (FEW) /hpf Ethyl Alcohol (0.00) gm% Med Orders - Current: Current Medications Acetaminophen (Tylenol) 650 mg PO Q4H PRN PRN Reason: Pain (Mild 1-3)/fever Hydrocodone Bitart/Acetaminophen ([place] 325-5 Mg) 1 tab PO Q4H PRN PRN Reason: Pain (moderate 4-6) Bisacodyl (Dulcolax) 5 mg PO DAILY PRN PRN Reason: Constipation Dextrose/Water (Dextrose 50% In Water) 50 ml IVPUSH ASDIRECTED PRN PRN Reason: Hypoglycemia Docusate Sodium (Colace) 100 mg PO BID PRN PRN Reason: Constipation Famotidine (Pepcid) 20 mg IVPUSH DAILY [facility] Hydralazine HCl (Apresoline) 10 mg IVPUSH Q4H PRN PRN Reason: Hypertension Hydromorphone HCl (Dilaudid) 0.25 mg IVPUSH Q2H PRN PRN Reason: Pain (severe 7-10) Last Admin: 04/04/18 04:54 Dose: 0.25 mg Ceftriaxone Sodium 2 gm/ (Sodium Chloride) 100 mls @ 200 mls/hr IV Q24H [facility] Last Admin: 04/03/18 20:40 Dose: 200 mls/hr Dextrose/Sodium Chloride (Dextrose 5%-1/2 Ns) 1,000 mls @ 125 mls/hr IV ASDIRECTED [facility] Last Admin: 04/04/18 04:42 Dose: 125 mls/hr Insulin Human Lispro (Humalog) 0 unit SUBCUT QIDACANDBED [facility]; Protocol Last Admin: 04/04/18 06:31 Dose: 1 unit Magnesium Hydroxide (Milk Of Magnesia) 30 ml PO Q12H PRN PRN Reason: Constipation Last Admin: 04/03/18 20:40 Dose: 30 ml Metoprolol Tartrate (Lopressor) 5 mg IVPUSH Q4H PRN PRN Reason: Tachycardia Ondansetron HCl (Zofran Odt) 4 mg PO Q4H PRN PRN Reason: nausea, able to take PO Ondansetron HCl (Zofran) 4 mg IV Q4H PRN PRN Reason: Nausea/Vomiting Polyethylene Glycol (Miralax) 17 gm PO DAILY PRN PRN Reason: Constipation Saccharomyces Boulardii (Florastor) 250 mg PO BID [facility] Last Admin: 04/03/18 20:41 Dose: 250 mg Senna/Docusate Sodium (Senna Plus) 1 tab PO BID PRN PRN Reason: Constipation Temazepam (Restoril) 7.5 mg PO BEDTIME PRN PRN Reason: Sleep - Exam GI/Abdominal Exam: Tender (tenderness unchanged ) Consult PN Assessment/Plan Procedures: Procedures ASSAY OF NATRIURETIC PEPTIDE (10/23/16) ASSAY OF TROPONIN QUANT (10/23/16) C-REACTIVE PROTEIN (10/23/16) CHEST X-RAY 2VW FRONTAL&LATL (10/23/16) COMPLETE CBC W/AUTO DIFF WBC (10/23/16) COMPREHEN METABOLIC PANEL (11/02/16) CT HEAD/BRAIN W/O DYE (10/23/16) DIAGNOSTIC COLONOSCOPY (11/28/16) ELECTROCARDIOGRAM TRACING (10/23/16) EMERGENCY DEPT VISIT (10/23/16) FIBRIN DEGRADATION QUANT (10/23/16) LIPID PANEL (11/02/16) PROTHROMBIN TIME (10/23/16) RBC SED RATE AUTOMATED (10/23/16) ROUTINE VENIPUNCTURE (11/02/16) THROMBOPLASTIN TIME PARTIAL (10/23/16) Problem List Initiated/Reviewed/Updated: Yes My Orders Last 24 Hours: US is pending his amylase and LIpase are noram the Dx of pancreatitis rest on the CT scan report and pt abdominal tenderness and hx of pain developing since The week end MARCELLE
[2018-04-04] MEDS: Saccharomyces Boulardii (Probiotic) 250 MG Cap PO SCH ×2 (08:55→20:51)
[2018-04-04] MEDS ORDERED: Famotidine 20 MG/2 ML SDV IVPUSH SCH (09:00)
--- NOTE | 2018-04-04 09:13 | US ---
Abdominal ultrasound: Multiple real-time images of the abdomen were obtained. Comparison: Previous outside CT exam performed at [facility] and dated 04/03/18. Liver appears echogenic compatible with fatty infiltration. Small low-density finding is noted within the left lobe measuring 9.4 mm which is felt compatible with a small cyst. No other focal abnormality is appreciated. Portions of the pancreas are obscured from bowel gas. Visualized portions of the pancreas shows no discrete abnormality. Gallbladder contains no shadowing gallstones. No gallbladder wall thickening or biliary duct dilatation is seen. Kidneys show no hydronephrosis or mass. Right kidney length is 13.1 cm and left kidney length is 13.3 cm. Spleen size is normal. Inferior vena cava is patent. Portal vein shows normal hepatopedal flow. Aorta shows no aneurysm. Impression: 1. Fatty infiltration within the liver. Small cyst within the left lobe. 2. No gallstones, gallbladder wall thickening or biliary duct dilatation. 3. Incompletely seen pancreas. Visualized portions of the pancreas appear within normal limits. Diagnostic code #2
[2018-04-04] MEDS: Fenofibrate 54 MG Tab PO SCH (13:06)
[2018-04-04] MEDS: Acetaminophen/HYDROcodone 325-5 MG Tab PO PRN (15:14)
[2018-04-04] MEDS: Magnesium Hydroxide 400 MG/5 ML Susp 30 ML Cup PO PRN (15:34)
--- NOTE | 2018-04-04 16:25 | PCM.PN ---
- General Info Date of Service: 04/04/18 Admission Dx/Problem (Free Text): Admission Diagnosis/Problem Admission Diagnosis/Problem Pancreatitis Admission Diagnosis/Problem Pancreatitis Subjective Update: In to see Hans. He is sitting up in bed visiting with his . He states he is feeling much better today, pain about 4/10, and main complaint is diarrhea and bloating. He did advance to clear liquid diet today. No other concerns at this time. All questions and concerns were answered. No concerns from nursing. Will keep clear liquid diet for now and advance as tolerated. Did talk about how his triglycerides are elevated and how that is likely the cause of his pancreatitis. He states he has had this issue since his 20's and stops taking his HLD medications bc "I feel better". He now understands the importance of taking control of his diet and taking his medications are and will be started on fenofibrate. Functional Status: Reports: Pain Controlled, Tolerating Diet, Ambulating, Urinating - Review of Systems General: Reports: No Symptoms. Denies: Fever, Chills HEENT: Reports: No Symptoms Pulmonary: Reports: No Symptoms. Denies: Shortness of Breath, Cough Cardiovascular: Reports: No Symptoms. Denies: Chest Pain Gastrointestinal: Reports: Abdominal Pain (epigastric radiating to LLQ, improving), Constipation (last normal BM Saturday, diarrhea today), Decreased Appetite, Diarrhea, Other (bloating). Denies: Nausea, Vomiting Genitourinary: Reports: No Symptoms Musculoskeletal: Reports: No Symptoms Skin: Reports: No Symptoms Neurological: Reports: No Symptoms Psychiatric: Reports: No Symptoms - Patient Data Vitals - Most Recent: Last Vital Signs Temp 98.9 F 04/03/18 20:54 Pulse 83 04/03/18 20:54 Resp 16 04/03/18 20:54 BP 141/85 H 04/03/18 20:54 Pulse Ox 94 L 04/03/18 20:54 Weight - Most Recent: 244 lb 6.401 oz I&O - Last 24 Hours: Intake & Output 04/04/18 04/04/18 04/04/18 06:59 14:59 22:59 Intake Total 1045 320 Output Total 825 Balance 220 320 Lab Results Last 24 Hours: Laboratory Results - last 24 hr 04/03/18 04/03/18 04/03/18 Range/Units 20:14 21:55 23:40 WBC (4.23-9.07) K/mm3 RBC (4.63-6.08) M/mm3 Hgb (13.7-17.5) gm/L Hct (40.1-51.0) % MCV (79.0-92.2) fl MCH (25.7-32.2) pg MCHC (32.2-35.5) g/dl RDW Std Deviation (35.1-43.9) fL Plt Count (163-337) K/mm3 MPV (9.4-12.3) fl Neut % (Auto) (34.0-67.9) % Lymph % (Auto) (21.8-53.1) % [place] % (Auto) (5.3-12.2) % Eos % (Auto) (0.8-7.0) Baso % (Auto) (0.1-1.2) % Neut # (Auto) (1.78-5.38) K/mm3 Lymph # (Auto) (1.32-3.57) K/mm3 [place] # (Auto) (0.30-0.82) K/mm3 Eos # (Auto) (0.04-0.54) K/mm3 Baso # (Auto) (0.01-0.08) K/mm3 Sodium (136-145) mEq/L Potassium (3.5-5.1) mEq/L Chloride (98-107) mEq/L Carbon Dioxide (21-32) mEq/L Anion Gap (5-15) BUN (7-18) mg/dL Creatinine (0.7-1.3) mg/dL Est Cr Clr Drug Dosing mL/min Estimated GFR (MDRD) (>60) mL/min BUN/Creatinine Ratio (14-18) Glucose (74-106) mg/dL POC Glucose 116 H (70-105) mg/dL Calcium (8.5-10.1) mg/dL Magnesium (1.8-2.4) mg/dl Total Bilirubin (0.2-1.0) mg/dL AST (15-37) U/L ALT (16-63) U/L Alkaline Phosphatase (46-116) U/L C-Reactive Protein (<1.0) mg/dL Total Protein (6.4-8.2) g/dl Albumin (3.4-5.0) g/dl Globulin gm/dL Albumin/Globulin Ratio (1-2) Triglycerides (<150) mg/dL Cholesterol (<200) mg/dL LDL Cholesterol Direct (<100) mg/dL HDL Cholesterol (40-59) mg/dL Lipase (73-393) U/L Urine Color Yellow (Yellow) Urine Appearance Slt cloudy H (Clear) Urine pH 7.0 (5.0-8.0) Ur Specific [place] 1.015 (1.005-1.030) Urine Protein 1+ H (Negative) Urine Glucose (UA) Negative (Negative) Urine Ketones Negative (Negative) Urine Occult Blood Trace-intact H (Negative) Urine Nitrite Negative (Negative) Urine Bilirubin Negative (Negative) Urine Urobilinogen 4.0 H (0.2-1.0) Ur Leukocyte Esterase Negative (Negative) Urine RBC 0-5 (0-5) /hpf Urine WBC 0-5 (0-5) /hpf Ur Epithelial Cells 0-5 (0-5) /hpf Ur Squamous Epith Cells 0-5 (0-5) /hpf Urine Bacteria Not seen (FEW) /hpf Urine Mucus Not seen (FEW) /hpf Ethyl Alcohol 0.00 (0.00) gm% 04/04/18 04/04/18 04/04/18 Range/Units 05:30 05:30 06:26 WBC 10.92 H (4.23-9.07) K/mm3 RBC 3.97 L (4.63-6.08) M/mm3 Hgb 12.6 L (13.7-17.5) gm/L Hct 38.4 L (40.1-51.0) % MCV 96.7 H (79.0-92.2) fl MCH 31.7 (25.7-32.2) pg MCHC 32.8 (32.2-35.5) g/dl RDW Std Deviation 42.6 (35.1-43.9) fL Plt Count 194 (163-337) K/mm3 MPV 11.2 (9.4-12.3) fl Neut % (Auto) 74.2 H (34.0-67.9) % Lymph % (Auto) 10.4 L (21.8-53.1) % [place] % (Auto) 12.0 (5.3-12.2) % Eos % (Auto) 2.9 (0.8-7.0) Baso % (Auto) 0.3 (0.1-1.2) % Neut # (Auto) 8.10 H (1.78-5.38) K/mm3 Lymph # (Auto) 1.14 L (1.32-3.57) K/mm3 [place] # (Auto) 1.31 H (0.30-0.82) K/mm3 Eos # (Auto) 0.32 (0.04-0.54) K/mm3 Baso # (Auto) 0.03 (0.01-0.08) K/mm3 Sodium 137 (136-145) mEq/L Potassium 3.6 (3.5-5.1) mEq/L Chloride 102 (98-107) mEq/L Carbon Dioxide 25 (21-32) mEq/L Anion Gap 13.6 (5-15) BUN 13 (7-18) mg/dL Creatinine 0.8 (0.7-1.3) mg/dL Est Cr Clr Drug Dosing 115.13 mL/min Estimated GFR (MDRD) > 60 (>60) mL/min BUN/Creatinine Ratio 16.3 (14-18) Glucose 146 H (74-106) mg/dL POC Glucose 165 H (70-105) mg/dL Calcium 8.5 (8.5-10.1) mg/dL Magnesium 2.2 (1.8-2.4) mg/dl Total Bilirubin 0.5 (0.2-1.0) mg/dL AST 20 (15-37) U/L ALT 40 (16-63) U/L Alkaline Phosphatase 62 (46-116) U/L C-Reactive Protein 14.1 H* (<1.0) mg/dL Total Protein 7.2 (6.4-8.2) g/dl Albumin 3.1 L (3.4-5.0) g/dl Globulin 4.1 gm/dL Albumin/Globulin Ratio 0.8 L (1-2) Triglycerides 221 H (<150) mg/dL Cholesterol 197 (<200) mg/dL LDL Cholesterol Direct 142 H* (<100) mg/dL HDL Cholesterol 25.0 L (40-59) mg/dL Lipase 218 (73-393) U/L Urine Color (Yellow) Urine Appearance (Clear) Urine pH (5.0-8.0) Ur Specific [place] (1.005-1.030) Urine Protein (Negative) Urine Glucose (UA) (Negative) Urine Ketones (Negative) Urine Occult Blood (Negative) Urine Nitrite (Negative) Urine Bilirubin (Negative) Urine Urobilinogen (0.2-1.0) Ur Leukocyte Esterase (Negative) Urine RBC (0-5) /hpf Urine WBC (0-5) /hpf Ur Epithelial Cells (0-5) /hpf Ur Squamous Epith Cells (0-5) /hpf Urine Bacteria (FEW) /hpf Urine Mucus (FEW) /hpf Ethyl Alcohol (0.00) gm% 04/04/18 Range/Units 11:49 WBC (4.23-9.07) K/mm3 RBC (4.63-6.08) M/mm3 Hgb (13.7-17.5) gm/L Hct (40.1-51.0) % MCV (79.0-92.2) fl MCH (25.7-32.2) pg MCHC (32.2-35.5) g/dl RDW Std Deviation (35.1-43.9) fL Plt Count (163-337) K/mm3 MPV (9.4-12.3) fl Neut % (Auto) (34.0-67.9) % Lymph % (Auto) (21.8-53.1) % [place] % (Auto) (5.3-12.2) % Eos % (Auto) (0.8-7.0) Baso % (Auto) (0.1-1.2) % Neut # (Auto) (1.78-5.38) K/mm3 Lymph # (Auto) (1.32-3.57) K/mm3 [place] # (Auto) (0.30-0.82) K/mm3 Eos # (Auto) (0.04-0.54) K/mm3 Baso # (Auto) (0.01-0.08) K/mm3 Sodium (136-145) mEq/L Potassium (3.5-5.1) mEq/L Chloride (98-107) mEq/L Carbon Dioxide (21-32) mEq/L Anion Gap (5-15) BUN (7-18) mg/dL Creatinine (0.7-1.3) mg/dL Est Cr Clr Drug Dosing mL/min Estimated GFR (MDRD) (>60) mL/min BUN/Creatinine Ratio (14-18) Glucose (74-106) mg/dL POC Glucose 152 H (70-105) mg/dL Calcium (8.5-10.1) mg/dL Magnesium (1.8-2.4) mg/dl Total Bilirubin (0.2-1.0) mg/dL AST (15-37) U/L ALT (16-63) U/L Alkaline Phosphatase (46-116) U/L C-Reactive Protein (<1.0) mg/dL Total Protein (6.4-8.2) g/dl Albumin (3.4-5.0) g/dl Globulin gm/dL Albumin/Globulin Ratio (1-2) Triglycerides (<150) mg/dL Cholesterol (<200) mg/dL LDL Cholesterol Direct (<100) mg/dL HDL Cholesterol (40-59) mg/dL Lipase (73-393) U/L Urine Color (Yellow) Urine Appearance (Clear) Urine pH (5.0-8.0) Ur Specific [place] (1.005-1.030) Urine Protein (Negative) Urine Glucose (UA) (Negative) Urine Ketones (Negative) Urine Occult Blood (Negative) Urine Nitrite (Negative) Urine Bilirubin (Negative) Urine Urobilinogen (0.2-1.0) Ur Leukocyte Esterase (Negative) Urine RBC (0-5) /hpf Urine WBC (0-5) /hpf Ur Epithelial Cells (0-5) /hpf Ur Squamous Epith Cells (0-5) /hpf Urine Bacteria (FEW) /hpf Urine Mucus (FEW) /hpf Ethyl Alcohol (0.00) gm% Med Orders - Current: Current Medications Acetaminophen (Tylenol) 650 mg PO Q4H PRN PRN Reason: Pain (Mild 1-3)/fever Hydrocodone Bitart/Acetaminophen ([place] 325-5 Mg) 1 tab PO Q4H PRN PRN Reason: Pain (moderate 4-6) Last Admin: 04/04/18 15:14 Dose: 1 tab Bisacodyl (Dulcolax) 5 mg PO DAILY PRN PRN Reason: Constipation Dextrose/Water (Dextrose 50% In Water) 50 ml IVPUSH ASDIRECTED PRN PRN Reason: Hypoglycemia Docusate Sodium (Colace) 100 mg PO BID PRN PRN Reason: Constipation Famotidine (Pepcid) 20 mg PO DAILY [facility] Fenofibrate (Fenofibrate) 54 mg PO DAILY [facility] Last Admin: 04/04/18 13:06 Dose: 54 mg Hydralazine HCl (Apresoline) 10 mg IVPUSH Q4H PRN PRN Reason: Hypertension Ceftriaxone Sodium 2 gm/ (Sodium Chloride) 100 mls @ 200 mls/hr IV Q24H [facility] Last Admin: 04/03/18 20:40 Dose: 200 mls/hr Magnesium Hydroxide (Milk Of Magnesia) 30 ml PO Q12H PRN PRN Reason: Constipation Last Admin: 04/04/18 15:34 Dose: 30 ml Metoprolol Tartrate (Lopressor) 5 mg IVPUSH Q4H PRN PRN Reason: Tachycardia Ondansetron HCl (Zofran Odt) 4 mg PO Q4H PRN PRN Reason: nausea, able to take PO Ondansetron HCl (Zofran) 4 mg IV Q4H PRN PRN Reason: Nausea/Vomiting Polyethylene Glycol (Miralax) 17 gm PO DAILY PRN PRN Reason: Constipation Saccharomyces Boulardii (Florastor) 250 mg PO BID [facility] Last Admin: 04/04/18 08:55 Dose: 250 mg Senna/Docusate Sodium (Senna Plus) 1 tab PO BID PRN PRN Reason: Constipation Temazepam (Restoril) 7.5 mg PO BEDTIME PRN PRN Reason: Sleep Discontinued Medications Famotidine (Pepcid) 20 mg IVPUSH DAILY [facility] Last Admin: 04/04/18 08:55 Dose: 20 mg Hydromorphone HCl (Dilaudid) 0.25 mg IVPUSH Q2H PRN PRN Reason: Pain (severe 7-10) Last Admin: 04/04/18 04:54 Dose: 0.25 mg Dextrose/Sodium Chloride (Dextrose 5%-1/2 Ns) 1,000 mls @ 125 mls/hr IV ASDIRECTED [facility] Last Admin: 04/04/18 04:42 Dose: 125 mls/hr Insulin Human Lispro (Humalog) 0 unit SUBCUT QIDACANDBED [facility]; Protocol Last Admin: 04/04/18 06:31 Dose: 1 unit - Exam Quality Assessment: DVT Prophylaxis General: Alert, Oriented, Cooperative, No Acute Distress HEENT: Pupils Equal, Pupils Reactive, EOMI, Mucous Membr. Moist/[place] Neck: Supple Lungs: Clear to Auscultation, Normal Respiratory Effort Cardiovascular: Regular Rate, Regular Rhythm GI/Abdominal Exam: Soft, No Organomegaly, No Abnormal Bruit, No Mass, Pelvis Stable, Distended, Tender (LLQ, improving), Abnormal Bowel Sounds (hyperactive) . No: Guarding, Rebound (Male) Exam: Deferred Back Exam: Normal Inspection Extremities: Normal Inspection, Normal Range of Motion, Non-Tender, No Pedal Edema, Normal Capillary Refill Peripheral Pulses: 2+: Posterior Tibial (L), Posterior Tibial (R), Dorsalis Pedis (L), Dorsalis Pedis (R) Skin: Warm, Dry, Intact Neurological: No New Focal Deficit Psy/Mental Status: Alert, Normal Affect, Normal Mood - Problem List & Annotations (1) Pancreatitis SNOMED Code(s): 91193926 Code(s): K85.90 - ACUTE PANCREATITIS WITHOUT NECROSIS OR INFECTION, UNSP Status: Resolved Priority: High Current Visit: Yes Qualifiers: Chronicity: acute Pancreatitis type: unspecified pancreatitis type Acute pancreatitis complication: unspecified Qualified Code(s): K85.90 - Acute pancreatitis without necrosis or infection, unspecified - Problem List Review Problem List Initiated/Reviewed/Updated: Yes - My Orders Last 24 Hours: My Active Orders 04/03/18 18:08 Patient Status [ADT] Routine Height and Weight [RC] 12 July Shower [RC] ASDIRECTED Oxygen Therapy [RC] PRN Up ad Essie [RC] ASDIRECTED VTE/DVT Education [RC] PER UNIT ROUTINE Vital Signs [RC] Q4HR 04/03/18 18:10 Intake and Output [RC] 04,16 04/03/18 18:14 Sequential Compression Device [OM.PC] Per Unit Routine 04/03/18 18:22 Acetaminophen [Tylenol] 650 mg PO Q4H PRN 04/03/18 18:31 Consult to Cooling Pan Tender [CONS] Routine Consult to Physician [CONS] Routine Acetaminophen/HYDROcodone [[place] 325-5 MG] 1 tab PO Q4H PRN Bisacodyl [Dulcolax] 5 mg PO DAILY PRN Docusate Sodium [Colace] 100 mg PO BID PRN Docusate Sodium/Sennosides [Senna Plus] 1 tab PO BID PRN Magnesium Hydroxide [Milk of Magnesia] 30 ml PO Q12H PRN Ondansetron [Zofran ODT] 4 mg PO Q4H PRN Ondansetron [Zofran] 4 mg IV Q4H PRN Polyethylene Glycol 3350 [MiraLAX] 17 gm PO DAILY PRN Temazepam [Restoril] 7.5 mg PO BEDTIME PRN 04/03/18 18:35 Antiembolic Devices [RC] DAILY 04/03/18 18:36 Notify Provider Consults [RC] ASDIRECTED 04/03/18 18:37 Blood Glucose Check, Bedside [] QIDACANDBED 04/03/18 18:38 Dextrose 50% in Water 50 ml IVPUSH ASDIRECTED PRN 04/03/18 18:48 Metoprolol Tartrate [Lopressor] 5 mg IVPUSH Q4H PRN hydrALAZINE [Apresoline] 10 mg IVPUSH Q4H PRN 04/03/18 21:00 Saccharomyces Boulardii [Florastor] 250 mg PO BID cefTRIAXone [Rocephin] 2 gm Sodium Chloride 0.9% [Normal Saline] 100 ml IV Q24H 04/03/18 23:40 CULTURE URINE [RM] Routine 04/05/18 05:11 C-REACTIVE PROTEIN [CHEM] AM CBC WITH AUTO DIFF [HEME] AM COMPREHENSIVE METABOLIC PN,CMP [CHEM] AM LIPASE [CHEM] AM MAGNESIUM [CHEM] AM 04/05/18 09:00 Famotidine [Pepcid] 20 mg PO DAILY 04/06/18 05:11 C-REACTIVE PROTEIN [CHEM] AM CBC WITH AUTO DIFF [HEME] AM COMPREHENSIVE METABOLIC PN,CMP [CHEM] AM LIPASE [CHEM] AM MAGNESIUM [CHEM] AM 04/07/18 05:11 C-REACTIVE PROTEIN [CHEM] AM CBC WITH AUTO DIFF [HEME] AM COMPREHENSIVE METABOLIC PN,CMP [CHEM] AM LIPASE [CHEM] AM MAGNESIUM [CHEM] AM 04/08/18 05:11 C-REACTIVE PROTEIN [CHEM] AM CBC WITH AUTO DIFF [HEME] AM COMPREHENSIVE METABOLIC PN,CMP [CHEM] AM LIPASE [CHEM] AM MAGNESIUM [CHEM] AM - Plan Plan:: Assessment/Plan: Acute: Acute Pancreatitis likely 2/2 Hypertriglyceridemia, Improving * Risk factor: EtOH, h/o HLD * LLQ abdominal pain x 4 days; movement makes worse * He denies similar pain in the past, no recent illness, no new foods * He is a social drinker * He has no previous h/o abdominal surgery or gallstones * Afebrile, WBC 13.1--> 10.92, CRP 14.1 * CT Ab/pelvis at clinic 04/03/18: * Inflamed pancreas with peripancreatic stranding with fluid. Associated retroperitoneal lymphadenopathy is present. * Hepatic steatosis * No evidence of appendicitis or diverticulitis * Lipid panel shows elevated Triglycerides (221), LDL (142), low HDL (25) * Start Fenofibrate * EtOH 0.0 * Lipase WNL * U/S Abdomen negative for gallstone: * 1. Fatty infiltration within the liver. Small cyst within the left lobe. * 2. No gallstones, gallbladder wall thickening or biliary duct dilatation. * 3. Incompletely seen pancreas. Visualized portions of the pancreas appear within normal limits. * Consult General Surgeon Dr. Lynn * NPO; IVF--> advance as tolerated * Pain management PRN Constipation * Likely 2/2 decreased intake, lack of fiber in diet * Advance diet as tolerated * Stool softener/laxatives PRN * Dietary consult Chronic: HLD; not currently on medication Diverticulosis- colonoscopy 18mo ago Plan: Admit to Medical Floor Routine AM Labs NPO, IVF--> clear liquid diet DVT/GI prophylaxis Code Status: DNR/DNI; PCP: Shubham Valera PA-C
[2018-04-04] MEDS: cefTRIAXone 2 GM in Sodium Chloride 0.9% 100 ML IV SCH (20:52)
[2018-04-05] MEDS: Saccharomyces Boulardii (Probiotic) 250 MG Cap PO SCH ×2 (08:43→20:35)
[2018-04-05] MEDS: Famotidine 20 MG Tab PO SCH (08:43)
[2018-04-05] MEDS: Acetaminophen 325 MG Tab PO PRN (08:43)
[2018-04-05] MEDS: Fenofibrate 54 MG Tab PO SCH (08:44)
--- NOTE | 2018-04-05 08:56 | PCM.SURGPN ---
- General Info Date of Service: 04/05/18 - Patient Data Vitals - Most Recent: Last Vital Signs Temp 98.7 F 04/05/18 04:00 Pulse 88 04/05/18 04:00 Resp 15 04/05/18 04:00 BP 137/77 04/05/18 04:00 Pulse Ox 97 04/05/18 04:00 Weight - Most Recent: 242 lb 12.8 oz I&O - Last 24 Hours: Intake & Output 04/04/18 04/05/18 04/05/18 22:59 06:59 14:59 Intake Total 1360 500 Output Total 450 2100 Balance 910 -1600 Lab Results Last 24 Hrs: Laboratory Results - last 24 hr 04/04/18 04/05/18 04/05/18 Range/Units 11:49 05:35 05:35 WBC 10.36 H (4.23-9.07) K/mm3 RBC 4.16 L (4.63-6.08) M/mm3 Hgb 13.2 L (13.7-17.5) gm/L Hct 40.2 (40.1-51.0) % MCV 96.6 H (79.0-92.2) fl MCH 31.7 (25.7-32.2) pg MCHC 32.8 (32.2-35.5) g/dl RDW Std Deviation 41.9 (35.1-43.9) fL Plt Count 219 (163-337) K/mm3 MPV 10.8 (9.4-12.3) fl Neut % (Auto) 74.3 H (34.0-67.9) % Lymph % (Auto) 11.5 L (21.8-53.1) % [place] % (Auto) 11.1 (5.3-12.2) % Eos % (Auto) 2.4 (0.8-7.0) Baso % (Auto) 0.3 (0.1-1.2) % Neut # (Auto) 7.70 H (1.78-5.38) K/mm3 Lymph # (Auto) 1.19 L (1.32-3.57) K/mm3 [place] # (Auto) 1.15 H (0.30-0.82) K/mm3 Eos # (Auto) 0.25 (0.04-0.54) K/mm3 Baso # (Auto) 0.03 (0.01-0.08) K/mm3 Sodium 134 L (136-145) mEq/L Potassium 3.8 (3.5-5.1) mEq/L Chloride 99 (98-107) mEq/L Carbon Dioxide 25 (21-32) mEq/L Anion Gap 13.8 (5-15) BUN 10 (7-18) mg/dL Creatinine 0.9 (0.7-1.3) mg/dL Est Cr Clr Drug Dosing 101.85 mL/min Estimated GFR (MDRD) > 60 (>60) mL/min BUN/Creatinine Ratio 11.1 L (14-18) Glucose 131 H (74-106) mg/dL POC Glucose 152 H (70-105) mg/dL Calcium 8.7 (8.5-10.1) mg/dL Magnesium 2.4 (1.8-2.4) mg/dl Total Bilirubin 0.5 (0.2-1.0) mg/dL AST 30 (15-37) U/L ALT 46 (16-63) U/L Alkaline Phosphatase 68 (46-116) U/L C-Reactive Protein 11.9 H* (<1.0) mg/dL Total Protein 7.5 (6.4-8.2) g/dl Albumin 3.1 L (3.4-5.0) g/dl Globulin 4.4 gm/dL Albumin/Globulin Ratio 0.7 L (1-2) Lipase 192 (73-393) U/L Med Orders - Current: Current Medications Acetaminophen (Tylenol) 650 mg PO Q4H PRN PRN Reason: Pain (Mild 1-3)/fever Last Admin: 04/05/18 08:43 Dose: 650 mg Hydrocodone Bitart/Acetaminophen ([place] 325-5 Mg) 1 tab PO Q4H PRN PRN Reason: Pain (moderate 4-6) Last Admin: 04/04/18 15:14 Dose: 1 tab Bisacodyl (Dulcolax) 5 mg PO DAILY PRN PRN Reason: Constipation Dextrose/Water (Dextrose 50% In Water) 50 ml IVPUSH ASDIRECTED PRN PRN Reason: Hypoglycemia Docusate Sodium (Colace) 100 mg PO BID PRN PRN Reason: Constipation Famotidine (Pepcid) 20 mg PO DAILY [facility] Last Admin: 04/05/18 08:43 Dose: 20 mg Fenofibrate (Fenofibrate) 54 mg PO DAILY [facility] Last Admin: 04/05/18 08:44 Dose: 54 mg Hydralazine HCl (Apresoline) 10 mg IVPUSH Q4H PRN PRN Reason: Hypertension Ceftriaxone Sodium 2 gm/ (Sodium Chloride) 100 mls @ 200 mls/hr IV Q24H [facility] Last Admin: 04/04/18 20:52 Dose: 200 mls/hr Magnesium Hydroxide (Milk Of Magnesia) 30 ml PO Q12H PRN PRN Reason: Constipation Last Admin: 04/04/18 15:34 Dose: 30 ml Metoprolol Tartrate (Lopressor) 5 mg IVPUSH Q4H PRN PRN Reason: Tachycardia Ondansetron HCl (Zofran Odt) 4 mg PO Q4H PRN PRN Reason: nausea, able to take PO Ondansetron HCl (Zofran) 4 mg IV Q4H PRN PRN Reason: Nausea/Vomiting Polyethylene Glycol (Miralax) 17 gm PO DAILY PRN PRN Reason: Constipation Saccharomyces Boulardii (Florastor) 250 mg PO BID [facility] Last Admin: 04/05/18 08:43 Dose: 250 mg Senna/Docusate Sodium (Senna Plus) 1 tab PO BID PRN PRN Reason: Constipation Temazepam (Restoril) 7.5 mg PO BEDTIME PRN PRN Reason: Sleep Discontinued Medications Famotidine (Pepcid) 20 mg IVPUSH DAILY [facility] Last Admin: 04/04/18 08:55 Dose: 20 mg Hydromorphone HCl (Dilaudid) 0.25 mg IVPUSH Q2H PRN PRN Reason: Pain (severe 7-10) Last Admin: 04/04/18 04:54 Dose: 0.25 mg Dextrose/Sodium Chloride (Dextrose 5%-1/2 Ns) 1,000 mls @ 125 mls/hr IV ASDIRECTED [facility] Last Admin: 04/04/18 04:42 Dose: 125 mls/hr Insulin Human Lispro (Humalog) 0 unit SUBCUT QIDACANDBED [facility]; Protocol Last Admin: 04/04/18 06:31 Dose: 1 unit - Problem List Review Problem List Initiated/Reviewed/Updated: Yes - My Orders Last 24 Hours: Active Orders 24 hr Category Date Time Status Clear Liquid Diet [DIET] Diet 04/04/18 Lunch Active C-REACTIVE PROTEIN [CHEM] AM Lab 04/06/18 05:11 Ordered C-REACTIVE PROTEIN [CHEM] AM Lab 04/07/18 05:11 Ordered C-REACTIVE PROTEIN [CHEM] AM Lab 04/08/18 05:11 Ordered CBC WITH AUTO DIFF [HEME] AM Lab 04/06/18 05:11 Ordered CBC WITH AUTO DIFF [HEME] AM Lab 04/07/18 05:11 Ordered CBC WITH AUTO DIFF [HEME] AM Lab 04/08/18 05:11 Ordered COMPREHENSIVE METABOLIC PN,CMP [CHEM] AM Lab 04/06/18 05:11 Ordered COMPREHENSIVE METABOLIC PN,CMP [CHEM] AM Lab 04/07/18 05:11 Ordered COMPREHENSIVE METABOLIC PN,CMP [CHEM] AM Lab 04/08/18 05:11 Ordered LIPASE [CHEM] AM Lab 04/06/18 05:11 Ordered LIPASE [CHEM] AM Lab 04/07/18 05:11 Ordered LIPASE [CHEM] AM Lab 04/08/18 05:11 Ordered MAGNESIUM [CHEM] AM Lab 04/06/18 05:11 Ordered MAGNESIUM [CHEM] AM Lab 04/07/18 05:11 Ordered MAGNESIUM [CHEM] AM Lab 04/08/18 05:11 Ordered Famotidine [Pepcid] Med 04/05/18 09:00 Active 20 mg PO DAILY Fenofibrate Med 04/04/18 11:45 Active 54 mg PO DAILY Medication Orders Acetaminophen (Tylenol) 650 mg PO Q4H PRN PRN Reason: Pain (Mild 1-3)/fever Last Admin: 04/05/18 08:43 Dose: 650 mg Hydrocodone Bitart/Acetaminophen (Dougherty 325-5 Mg) 1 tab PO Q4H PRN PRN Reason: Pain (moderate 4-6) Last Admin: 04/04/18 15:14 Dose: 1 tab Bisacodyl (Dulcolax) 5 mg PO DAILY PRN PRN Reason: Constipation Dextrose/Water (Dextrose 50% In Water) 50 ml IVPUSH ASDIRECTED PRN PRN Reason: Hypoglycemia Docusate Sodium (Colace) 100 mg PO BID PRN PRN Reason: Constipation Famotidine (Pepcid) 20 mg PO DAILY [facility] Last Admin: 04/05/18 08:43 Dose: 20 mg Fenofibrate (Fenofibrate) 54 mg PO DAILY [facility] Last Admin: 04/05/18 08:44 Dose: 54 mg Admin: 04/04/18 13:06 Dose: 54 mg Hydralazine HCl (Apresoline) 10 mg IVPUSH Q4H PRN PRN Reason: Hypertension Ceftriaxone Sodium 2 gm/ (Sodium Chloride) 100 mls @ 200 mls/hr IV Q24H [facility] Last Admin: 04/04/18 20:52 Dose: 200 mls/hr Infusion: 04/03/18 21:10 Dose: 200 mls/hr Admin: 04/03/18 20:40 Dose: 200 mls/hr Magnesium Hydroxide (Milk Of Magnesia) 30 ml PO Q12H PRN PRN Reason: Constipation Last Admin: 04/04/18 15:34 Dose: 30 ml Admin: 04/03/18 20:40 Dose: 30 ml Metoprolol Tartrate (Lopressor) 5 mg IVPUSH Q4H PRN PRN Reason: Tachycardia Ondansetron HCl (Zofran Odt) 4 mg PO Q4H PRN PRN Reason: nausea, able to take PO Ondansetron HCl (Zofran) 4 mg IV Q4H PRN PRN Reason: Nausea/Vomiting Polyethylene Glycol (Miralax) 17 gm PO DAILY PRN PRN Reason: Constipation Saccharomyces Boulardii (Florastor) 250 mg PO BID [facility] Last Admin: 04/05/18 08:43 Dose: 250 mg Admin: 04/04/18 20:51 Dose: 250 mg Admin: 04/04/18 08:55 Dose: 250 mg Admin: 04/03/18 20:41 Dose: 250 mg Senna/Docusate Sodium (Senna Plus) 1 tab PO BID PRN PRN Reason: Constipation Temazepam (Restoril) 7.5 mg PO BEDTIME PRN PRN Reason: Sleep - Assessment Assessment (Free Text/Narrative):: Mr. Russell says that he slept very well he is hungry and denies any abd pain--less sore than yesterday he has remained afebile labs--decrease in the lipase PE--abd soft and non tender IMP resolving pancreatitis-- I discussed with Mr. Russell the importance to work with the medical team to decrease his triglycerides to that this will not reoccur He is aware that this was a mild case and we are grateful for that Will sign off as this is nonsurgical pancreatitis call if needed thank you Dr. Olsen
--- NOTE | 2018-04-05 12:10 | PCM.PN ---
- General Info Date of Service: 04/05/18 Functional Status: Reports: Pain Controlled, Tolerating Diet, Ambulating, Urinating - Review of Systems General: Reports: No Symptoms HEENT: Reports: No Symptoms Pulmonary: Reports: No Symptoms Cardiovascular: Reports: No Symptoms Gastrointestinal: Reports: No Symptoms Genitourinary: Reports: No Symptoms Musculoskeletal: Reports: No Symptoms Skin: Reports: No Symptoms Neurological: Reports: No Symptoms Psychiatric: Reports: No Symptoms - Patient Data Vitals - Most Recent: Last Vital Signs Temp 37.1 C 04/05/18 04:00 Pulse 88 04/05/18 04:00 Resp 15 04/05/18 04:00 BP 137/77 04/05/18 04:00 Pulse Ox 97 04/05/18 04:00 Weight - Most Recent: 110.132 kg I&O - Last 24 Hours: Intake & Output 04/04/18 04/05/18 04/05/18 22:59 06:59 14:59 Intake Total 1880 500 260 Output Total 450 2100 Balance 1430 -1600 260 Lab Results Last 24 Hours: Laboratory Results - last 24 hr 04/05/18 04/05/18 Range/Units 05:35 05:35 WBC 10.36 H (4.23-9.07) K/mm3 RBC 4.16 L (4.63-6.08) M/mm3 Hgb 13.2 L (13.7-17.5) gm/L Hct 40.2 (40.1-51.0) % MCV 96.6 H (79.0-92.2) fl MCH 31.7 (25.7-32.2) pg MCHC 32.8 (32.2-35.5) g/dl RDW Std Deviation 41.9 (35.1-43.9) fL Plt Count 219 (163-337) K/mm3 MPV 10.8 (9.4-12.3) fl Neut % (Auto) 74.3 H (34.0-67.9) % Lymph % (Auto) 11.5 L (21.8-53.1) % [place] % (Auto) 11.1 (5.3-12.2) % Eos % (Auto) 2.4 (0.8-7.0) Baso % (Auto) 0.3 (0.1-1.2) % Neut # (Auto) 7.70 H (1.78-5.38) K/mm3 Lymph # (Auto) 1.19 L (1.32-3.57) K/mm3 [place] # (Auto) 1.15 H (0.30-0.82) K/mm3 Eos # (Auto) 0.25 (0.04-0.54) K/mm3 Baso # (Auto) 0.03 (0.01-0.08) K/mm3 Sodium 134 L (136-145) mEq/L Potassium 3.8 (3.5-5.1) mEq/L Chloride 99 (98-107) mEq/L Carbon Dioxide 25 (21-32) mEq/L Anion Gap 13.8 (5-15) BUN 10 (7-18) mg/dL Creatinine 0.9 (0.7-1.3) mg/dL Est Cr Clr Drug Dosing 101.85 mL/min Estimated GFR (MDRD) > 60 (>60) mL/min BUN/Creatinine Ratio 11.1 L (14-18) Glucose 131 H (74-106) mg/dL Calcium 8.7 (8.5-10.1) mg/dL Magnesium 2.4 (1.8-2.4) mg/dl Total Bilirubin 0.5 (0.2-1.0) mg/dL AST 30 (15-37) U/L ALT 46 (16-63) U/L Alkaline Phosphatase 68 (46-116) U/L C-Reactive Protein 11.9 H* (<1.0) mg/dL Total Protein 7.5 (6.4-8.2) g/dl Albumin 3.1 L (3.4-5.0) g/dl Globulin 4.4 gm/dL Albumin/Globulin Ratio 0.7 L (1-2) Lipase 192 (73-393) U/L Michel Results Last 24 Hours: Microbiology 04/03/18 23:40 Urine Culture - Final Urine, Clean Catch NO GROWTH AFTER 2 DAYS Med Orders - Current: Current Medications Acetaminophen (Tylenol) 650 mg PO Q4H PRN PRN Reason: Pain (Mild 1-3)/fever Last Admin: 04/05/18 08:43 Dose: 650 mg Hydrocodone Bitart/Acetaminophen ([place] 325-5 Mg) 1 tab PO Q4H PRN PRN Reason: Pain (moderate 4-6) Last Admin: 04/04/18 15:14 Dose: 1 tab Bisacodyl (Dulcolax) 5 mg PO DAILY PRN PRN Reason: Constipation Dextrose/Water (Dextrose 50% In Water) 50 ml IVPUSH ASDIRECTED PRN PRN Reason: Hypoglycemia Docusate Sodium (Colace) 100 mg PO BID PRN PRN Reason: Constipation Famotidine (Pepcid) 20 mg PO DAILY [facility] Last Admin: 04/05/18 08:43 Dose: 20 mg Fenofibrate (Fenofibrate) 54 mg PO DAILY [facility] Last Admin: 04/05/18 08:44 Dose: 54 mg Hydralazine HCl (Apresoline) 10 mg IVPUSH Q4H PRN PRN Reason: Hypertension Ceftriaxone Sodium 2 gm/ (Sodium Chloride) 100 mls @ 200 mls/hr IV Q24H [facility] Last Admin: 04/04/18 20:52 Dose: 200 mls/hr Magnesium Hydroxide (Milk Of Magnesia) 30 ml PO Q12H PRN PRN Reason: Constipation Last Admin: 04/04/18 15:34 Dose: 30 ml Metoprolol Tartrate (Lopressor) 5 mg IVPUSH Q4H PRN PRN Reason: Tachycardia Ondansetron HCl (Zofran Odt) 4 mg PO Q4H PRN PRN Reason: nausea, able to take PO Ondansetron HCl (Zofran) 4 mg IV Q4H PRN PRN Reason: Nausea/Vomiting Polyethylene Glycol (Miralax) 17 gm PO DAILY PRN PRN Reason: Constipation Saccharomyces Boulardii (Florastor) 250 mg PO BID [facility] Last Admin: 04/05/18 08:43 Dose: 250 mg Senna/Docusate Sodium (Senna Plus) 1 tab PO BID PRN PRN Reason: Constipation Simvastatin (Zocor) 5 mg PO BEDTIME [facility] Temazepam (Restoril) 7.5 mg PO BEDTIME PRN PRN Reason: Sleep Discontinued Medications Famotidine (Pepcid) 20 mg IVPUSH DAILY [facility] Last Admin: 04/04/18 08:55 Dose: 20 mg Hydromorphone HCl (Dilaudid) 0.25 mg IVPUSH Q2H PRN PRN Reason: Pain (severe 7-10) Last Admin: 04/04/18 04:54 Dose: 0.25 mg Dextrose/Sodium Chloride (Dextrose 5%-1/2 Ns) 1,000 mls @ 125 mls/hr IV ASDIRECTED [facility] Last Admin: 04/04/18 04:42 Dose: 125 mls/hr Insulin Human Lispro (Humalog) 0 unit SUBCUT QIDACANDBED [facility]; Protocol Last Admin: 04/04/18 06:31 Dose: 1 unit - Exam Quality Assessment: DVT Prophylaxis General: Alert, Oriented, Cooperative, No Acute Distress HEENT: Pupils Equal, Pupils Reactive, EOMI Neck: Trachea Midline, No JVD Lungs: Normal Respiratory Effort Cardiovascular: Regular Rate, Regular Rhythm GI/Abdominal Exam: Normal Bowel Sounds, Soft, Non-Tender, No Organomegaly, No Distention (Male) Exam: Deferred Back Exam: Normal Inspection Extremities: Normal Inspection, Non-Tender, Normal Capillary Refill Skin: Warm Neurological: No New Focal Deficit, Normal Gait, Normal Speech, Cranial Nerves Intact Psy/Mental Status: Alert, Normal Affect, Normal Mood - Problem List Review Problem List Initiated/Reviewed/Updated: Yes - My Orders Last 24 Hours: My Active Orders 04/04/18 11:45 Fenofibrate 54 mg PO DAILY 04/05/18 21:00 Simvastatin [Zocor] 5 mg PO BEDTIME 04/05/18 Lunch Heart Healthy Diet [DIET] Soft Diet [DIET] - Plan Plan:: Assessment/Plan: Acute: Acute Pancreatitis 2/2 Hypertriglyceridemia, Improving * Risk factor: EtOH, h/o HLD * LLQ abdominal pain x 4 days; movement makes worse-->resolved * He denies similar pain in the past, no recent illness, no new foods * He is a social drinker * He has no previous h/o abdominal surgery or gallstones * Afebrile, WBC 13.1--> 10.92, CRP 14.1 * CT Ab/pelvis at clinic 04/03/18: * Inflamed pancreas with peripancreatic stranding with fluid. Associated retroperitoneal lymphadenopathy is present. * Hepatic steatosis * No evidence of appendicitis or diverticulitis * Lipid panel shows elevated Triglycerides (221), LDL (142), low HDL (25) * Start Fenofibrate * EtOH 0.0 * Lipase WNL * U/S Abdomen negative for gallstone: * 1. Fatty infiltration within the liver. Small cyst within the left lobe. * 2. No gallstones, gallbladder wall thickening or biliary duct dilatation. * 3. Incompletely seen pancreas. Visualized portions of the pancreas appear within normal limits. * Consult General Surgeon Dr. Lynn/Dr Naylor--signed off, nonsurgical pancreatitis * NPO; IVF--> advance as tolerated * Pain management PRN Constipation * Likely 2/2 decreased intake, lack of fiber in diet * Advance diet as tolerated * Stool softener/laxatives PRN * Dietary consult Chronic: HLD; not currently on medication Diverticulosis- colonoscopy 18mo ago Plan: Medical Floor Routine AM Labs Advance diet as tolerated Needs dietary consult as OP for low cholesterol, weight loss. Fibrate, low dose statin; repeat labs in 90 days: FLP with CMP, if needed would add CoQ 10 DVT/GI prophylaxis Code Status: DNR/DNI; PCP: Shubham Valera PA-C DC 04/06/18.
[2018-04-05] MEDS: Acetaminophen/HYDROcodone 325-5 MG Tab PO PRN (17:07)
[2018-04-05] MEDS: cefTRIAXone 2 GM in Sodium Chloride 0.9% 100 ML IV SCH (20:35)
[2018-04-05] MEDS ORDERED: Simvastatin 10 MG Tab PO SCH (21:00)
[2018-04-06] MEDS: Acetaminophen 325 MG Tab PO PRN (02:54)
[2018-04-06 08:27] VITALS: BP 128/80
[2018-04-06] MEDS: Saccharomyces Boulardii (Probiotic) 250 MG Cap PO SCH (08:28)
[2018-04-06] MEDS: Famotidine 20 MG Tab PO SCH (08:28)
[2018-04-06] MEDS: Fenofibrate 54 MG Tab PO SCH (08:28)
--- NOTE | 2018-04-06 10:02 | PCM.DCSUM1 ---
Discharge Summary - Hospital Course Free Text/Narrative:: 54 year old male with AUTI documented in an outpatient clinic was also found to have acute pancreatitis. He rapidly improved with supportive care. After a lipid panel confirmed the elevated cholesterol particularly triglycerides, Zocor and a Fibrate were started. The diet was advanced slowly. Consults included dietary, and general surgery. He was also educated on tobacco cessation. Primary Dx Acute pancreatitis AUTI Tobacco dependence Hyperlipidemia/hypertriglyceridemia Dehydration Meds See list Labs on 06/2018 CPK FLP Appts PCP, Shubham Valera on 04/10/18 HPI Initial Comments: This is a 57 yo male with past medical h/o HLD, diverticulosis who is a direct admit from clinic for pancreatitis. He has LLQ abdominal pain x 4 days- describes as constant and crampy, with movement making it worse. He also c/o constipation, decreased appetite, nausea. He denies F/C, vomiting, diarrhea, bloody stool. He denies similar pain in the past, no recent illness, no new foods. He is a social drinker. He has no history of abdominal surgery or gallstones. Initial labs obtained at clinic. CBC remarkable for WBC 13.1, RBC 4.31, Neut 74% , Lymph 12.9%, [place] 10.6%. His chemistry is remarkable for Glu 121, Cr 0.7. UA not impressive for UTI. CT Ab/pelvis at clinic shows pancreas remarkable for peripancreatic inflammation consistent with pancreatitis, stranding in the peripancreatic at is also present with no evidence of pseudocyst. He is subsequently admitted to the medical floor. He is a DNR/DNI. PCP is Dr. Lisa Aguilar. Diagnosis: Stroke: No - Discharge Data Discharge Date: 04/06/18 Discharge Disposition: Home, Self-Care 01 Condition: Good - Patient Summary/Data Consults: Consultations 04/03/18 18:31 Consult to [place] [CONS] Routine Consult to Physician [CONS] Routine - Patient Instructions Diet: Heart Healthy Diet Activity: As Tolerated Driving: May Drive Today Showering/Bathing: May Shower Notify Provider of: Fever, Increased Pain, Nausea and/or Vomiting - Discharge Plan *PRESCRIPTION DRUG MONITORING PROGRAM REVIEWED*: Not Applicable *COPY OF PRESCRIPTION DRUG MONITORING REPORT IN PATIENT JOSE: Not Applicable Prescriptions/Med Rec: cephALEXin [Keflex] 500 mg PO Q6HR #12 cap Fenofibrate 54 mg PO DAILY #30 tablet Saccharomyces Boulardii [Florastor] 250 mg PO BID #20 cap Simvastatin 5 mg PO BEDTIME #30 tablet Home Medications: Home Meds Ascorbic Acid [Vitamin C] 1,000 mg PO DAILY 04/03/18 [History] Cholecalciferol (Vitamin D3) [Vitamin D3] 2,000 unit PO DAILY 04/03/18 [History] Fish Oil/[place]-3 Fatty Acids [Fish Oil] 1 each PO DAILY 04/03/18 [History] Methylsulfonylmethane [MSM] DAILY 04/03/18 [History] Multivitamin [Coq-[id number]] 1 each PO DAILY 04/03/18 [History] Fenofibrate 54 mg PO DAILY #30 tablet 04/06/18 [Rx] Saccharomyces Boulardii [Florastor] 250 mg PO BID #20 cap 04/06/18 [Rx] Simvastatin 5 mg PO BEDTIME #30 tablet 04/06/18 [Rx] cephALEXin [Keflex] 500 mg PO Q6HR #12 cap 04/06/18 [Rx] Other Amb Orders: CREATINE KINASE,CK [CHEM] Time Frame: 07/04/18, Location: None Selected LIPID PANEL [CHEM] Time Frame: 07/04/18, Location: None Selected Oxygen Therapy Mode: Room Air Patient Handouts: Acute Pancreatitis, [id number], Urinary Tract Infection, Adult, Steps to Quit Smoking Referrals: Shubham Valera PA-C [Physician Entry Level Financial Analyst] - 04/10/18 10:45 am - Discharge Summary/Plan Comment DC Time >30 min.: No Discharge Summary/Plan Comment: Acute: Acute Pancreatitis 2/2 Hypertriglyceridemia, Improving * Risk factor: EtOH, h/o HLD * LLQ abdominal pain x 4 days; movement makes worse-->resolved * He denies similar pain in the past, no recent illness, no new foods * He is a social drinker * He has no previous h/o abdominal surgery or gallstones * Afebrile, WBC 13.1--> 10.92, CRP 14.1 * CT Ab/pelvis at clinic 04/03/18: * Inflamed pancreas with peripancreatic stranding with fluid. Associated retroperitoneal lymphadenopathy is present. * Hepatic steatosis * No evidence of appendicitis or diverticulitis * Lipid panel shows elevated Triglycerides (221), LDL (142), low HDL (25) * Start Fenofibrate * EtOH 0.0 * Lipase WNL * U/S Abdomen negative for gallstone: * 1. Fatty infiltration within the liver. Small cyst within the left lobe. * 2. No gallstones, gallbladder wall thickening or biliary duct dilatation. * 3. Incompletely seen pancreas. Visualized portions of the pancreas appear within normal limits. * Consult General Surgeon Dr. Lynn/Dr Naylor--signed off, nonsurgical pancreatitis * NPO; IVF--> advance as tolerated * Pain management PRN AUTI--Rocephin>>>Keflex 500 mg TID for 3 days. Florstor 250 mg BID. Hyperlipidemia>>predominately hypertriglyceridemia; started Zocor 5 mg daily, Fenofibrate 54 mg daily. Labs 90 days CPK, FLP Constipation * Likely 2/2 decreased intake, lack of fiber in diet * Advance diet as tolerated * Stool softener/laxatives PRN * Dietary consult Chronic: HLD; not currently on medication Diverticulosis- colonoscopy 18mo ago Plan: Medical Floor Routine AM Labs Advance diet as tolerated Needs dietary consult as OP for low cholesterol, weight loss. Fibrate, low dose statin; repeat labs in 90 days: FLP with CMP, if needed would add CoQ 10 DVT/GI prophylaxis Code Status: DNR/DNI; PCP: Shubham Valera PA-C DC 04/06/18. - General Info Date of Service: 04/03/18 Functional Status: Reports: Pain Controlled, Tolerating Diet, Ambulating, Urinating - Review of Systems General: Reports: No Symptoms HEENT: Reports: No Symptoms Pulmonary: Reports: No Symptoms Cardiovascular: Reports: No Symptoms Gastrointestinal: Reports: No Symptoms Genitourinary: Reports: No Symptoms Musculoskeletal: Reports: No Symptoms Skin: Reports: No Symptoms Neurological: Reports: No Symptoms Psychiatric: Reports: No Symptoms - Patient Data Vitals - Most Recent: Last Vital Signs Temp 37.0 C 04/06/18 08:26 Pulse 78 04/06/18 08:26 Resp 16 04/06/18 08:26 BP 128/80 04/06/18 08:26 Pulse Ox 98 04/06/18 08:26 Weight - Most Recent: 109.815 kg I&O - Last 24 hours: Intake & Output 04/05/18 04/06/18 04/06/18 22:59 06:59 14:59 Intake Total 320 900 Output Total 1200 Balance 320 -300 Lab Results - Last 24 hrs: Laboratory Results - last 24 hr 04/06/18 04/06/18 Range/Units 06:04 06:04 WBC 10.32 H (4.23-9.07) K/mm3 RBC 4.24 L (4.63-6.08) M/mm3 Hgb 13.3 L (13.7-17.5) gm/L Hct 40.8 (40.1-51.0) % MCV 96.2 H (79.0-92.2) fl MCH 31.4 (25.7-32.2) pg MCHC 32.6 (32.2-35.5) g/dl RDW Std Deviation 41.4 (35.1-43.9) fL Plt Count 249 (163-337) K/mm3 MPV 10.4 (9.4-12.3) fl Neut % (Auto) 73.9 H (34.0-67.9) % Lymph % (Auto) 12.2 L (21.8-53.1) % [place] % (Auto) 10.9 (5.3-12.2) % Eos % (Auto) 2.4 (0.8-7.0) Baso % (Auto) 0.3 (0.1-1.2) % Neut # (Auto) 7.63 H (1.78-5.38) K/mm3 Lymph # (Auto) 1.26 L (1.32-3.57) K/mm3 [place] # (Auto) 1.12 H (0.30-0.82) K/mm3 Eos # (Auto) 0.25 (0.04-0.54) K/mm3 Baso # (Auto) 0.03 (0.01-0.08) K/mm3 Sodium 139 (136-145) mEq/L Potassium 4.4 (3.5-5.1) mEq/L Chloride 103 (98-107) mEq/L Carbon Dioxide 26 (21-32) mEq/L Anion Gap 14.4 (5-15) BUN 14 (7-18) mg/dL Creatinine 0.9 (0.7-1.3) mg/dL Est Cr Clr Drug Dosing 101.85 mL/min Estimated GFR (MDRD) > 60 (>60) mL/min BUN/Creatinine Ratio 15.6 (14-18) Glucose 117 H (74-106) mg/dL Calcium 9.2 (8.5-10.1) mg/dL Magnesium 2.5 H (1.8-2.4) mg/dl Total Bilirubin 0.4 (0.2-1.0) mg/dL AST 29 (15-37) U/L ALT 49 (16-63) U/L Alkaline Phosphatase 62 (46-116) U/L C-Reactive Protein 9.2 H* (<1.0) mg/dL Total Protein 7.7 (6.4-8.2) g/dl Albumin 3.1 L (3.4-5.0) g/dl Globulin 4.6 gm/dL Albumin/Globulin Ratio 0.7 L (1-2) Lipase 176 (73-393) U/L J LUIS Results - Last 24 hrs: Microbiology 04/03/18 23:40 Urine Culture - Final Urine, Clean Catch NO GROWTH AFTER 2 DAYS Med Orders - Current: Current Medications Acetaminophen (Tylenol) 650 mg PO Q4H PRN PRN Reason: Pain (Mild 1-3)/fever Last Admin: 04/06/18 02:54 Dose: 650 mg Hydrocodone Bitart/Acetaminophen ([place] 325-5 Mg) 1 tab PO Q4H PRN PRN Reason: Pain (moderate 4-6) Last Admin: 04/05/18 17:07 Dose: 1 tab Bisacodyl (Dulcolax) 5 mg PO DAILY PRN PRN Reason: Constipation Dextrose/Water (Dextrose 50% In Water) 50 ml IVPUSH ASDIRECTED PRN PRN Reason: Hypoglycemia Docusate Sodium (Colace) 100 mg PO BID PRN PRN Reason: Constipation Famotidine (Pepcid) 20 mg PO DAILY [facility] Last Admin: 04/06/18 08:28 Dose: 20 mg Fenofibrate (Fenofibrate) 54 mg PO DAILY [facility] Last Admin: 04/06/18 08:28 Dose: 54 mg Hydralazine HCl (Apresoline) 10 mg IVPUSH Q4H PRN PRN Reason: Hypertension Ceftriaxone Sodium 2 gm/ (Sodium Chloride) 100 mls @ 200 mls/hr IV ONETIME ONE Stop: 04/06/18 10:59 Magnesium Hydroxide (Milk Of Magnesia) 30 ml PO Q12H PRN PRN Reason: Constipation Last Admin: 04/04/18 15:34 Dose: 30 ml Metoprolol Tartrate (Lopressor) 5 mg IVPUSH Q4H PRN PRN Reason: Tachycardia Ondansetron HCl (Zofran Odt) 4 mg PO Q4H PRN PRN Reason: nausea, able to take PO Ondansetron HCl (Zofran) 4 mg IV Q4H PRN PRN Reason: Nausea/Vomiting Polyethylene Glycol (Miralax) 17 gm PO DAILY PRN PRN Reason: Constipation Saccharomyces Boulardii (Florastor) 250 mg PO BID [facility] Last Admin: 04/06/18 08:28 Dose: 250 mg Senna/Docusate Sodium (Senna Plus) 1 tab PO BID PRN PRN Reason: Constipation Simvastatin (Zocor) 5 mg PO BEDTIME [facility] Last Admin: 04/05/18 20:36 Dose: 5 mg Temazepam (Restoril) 7.5 mg PO BEDTIME PRN PRN Reason: Sleep Discontinued Medications Famotidine (Pepcid) 20 mg IVPUSH DAILY [facility] Last Admin: 04/04/18 08:55 Dose: 20 mg Hydromorphone HCl (Dilaudid) 0.25 mg IVPUSH Q2H PRN PRN Reason: Pain (severe 7-10) Last Admin: 04/04/18 04:54 Dose: 0.25 mg Ceftriaxone Sodium 2 gm/ (Sodium Chloride) 100 mls @ 200 mls/hr IV Q24H [facility] Last Admin: 04/05/18 20:35 Dose: 200 mls/hr Dextrose/Sodium Chloride (Dextrose 5%-1/2 Ns) 1,000 mls @ 125 mls/hr IV ASDIRECTED [facility] Last Admin: 04/04/18 04:42 Dose: 125 mls/hr Insulin Human Lispro (Humalog) 0 unit SUBCUT QIDACANDBED [facility]; Protocol Last Admin: 04/04/18 06:31 Dose: 1 unit - Exam Quality Assessment: Reports: DVT Prophylaxis General: Reports: Alert, Oriented, Cooperative, No Acute Distress HEENT: Reports: Pupils Equal, Pupils Reactive, EOMI Neck: Reports: Trachea Midline, No JVD Lungs: Reports: Clear to Auscultation, Normal Respiratory Effort Cardiovascular: Reports: Regular Rate, Regular Rhythm GI/Abdominal Exam: Normal Bowel Sounds, Soft, Non-Tender, No Organomegaly, No Distention (Male) Exam: Deferred Rectal (Males) Exam: Deferred Back Exam: Reports: Normal Inspection Extremities: Normal Inspection, Non-Tender, Normal Capillary Refill Skin: Reports: Warm Neurological: Reports: No New Focal Deficit, Normal Gait, Normal Speech Psy/Mental Status: Reports: Alert, Normal Affect, Normal Mood
[2018-04-06] MEDS ORDERED: cefTRIAXone 2 GM in Sodium Chloride 0.9% 100 ML IV ONE (10:30)
[2018-04-07] MEDS ORDERED: Cephalexin 500 MG Cap PO SCH (09:00)
== END 2018-04-06 11:27 | disposition home or self-care (01) | DRG 282 ==
LOC: UNDOADMIN 17:04 → JD.MS 17:04
PROVIDERS: ADMIT Internal Medicine Cardiovascular Disease; ATTEND Internal Medicine Cardiovascular Disease
DX: K85.90 Acute pancreatitis without necrosis or infection, unspecified (principal); N39.0 Urinary tract infection, site not specified; F17.200 Nicotine dependence, unspecified, uncomplicated; E78.5 Hyperlipidemia, unspecified; E78.1 Pure hyperglyceridemia; E86.0 Dehydration; K59.00 Constipation, unspecified; K57.90 Diverticulosis of intestine, part unspecified, without perforation or abscess without bleeding; H91.90 Unspecified hearing loss, unspecified ear; E78.00 Pure hypercholesterolemia, unspecified; M19.90 Unspecified osteoarthritis, unspecified site; Z98.52 Vasectomy status; Z66 Do not resuscitate; Z79.899 Other long term (current) drug therapy; Z91.14 Patient's other noncompliance with medication regimen
CPT/HCPCS: 36415; 76700; 76700-26; 80053; 80061; 81001; 82962; 83690; 83735; 85025; 86140; 87086; A9270-GY; G0480; J0696; J1170; J1815; J3490; J7030; J7042

== ENCOUNTER 2023-04-04 19:04 | Emergency (ER) | payer BC, OTHER ==
[2023-04-04] MEDS ORDERED: Ibuprofen 400 MG Tab PO ONE (21:54)
[2023-04-04] MEDS ORDERED: Acetaminophen 325 MG Tab PO ONE (21:54)
[2023-04-04 22:17] VITALS: BP 156/85; PULSE 78
== END 2023-04-04 22:10 | disposition home or self-care (01) ==
LOC: JD.ED 19:04
DX: M25.561 Pain in right knee (principal); F17.210 Nicotine dependence, cigarettes, uncomplicated; E78.00 Pure hypercholesterolemia, unspecified; Z79.899 Other long term (current) drug therapy
CPT/HCPCS: 73502-26-RT; 73502-RT; 73562-26-RT; 73562-RT; 73700-26-RT; 73700-RT; 99283; 99284; A9270-GY

== ENCOUNTER 2023-11-06 07:55 | Day surgery (SDC) | payer BC ==
[~2023-11-06 07:55] MED LIST changes: +Dexamethasone 4 MG/ML 5 ML MDV ONE; +EPINEPHrine 1 MG/ML SDV ONE; -Lactated Ringers 1,000 ML IV SCH; +Lidocaine 1% 5 ML VIAL ONE; -Lidocaine 1%/Sod Bicarbonate in NS 8.4% 1 ML Syringe PRN; +Midazolam 1 MG/ML 2 ML SDV ONE; +Propofol 200 MG/20 ML SDV ONE; +Ropivacaine 0.5% 5 MG/ML 30 ML SDV ONE; +Sodium Chloride 0.9% 10 ML Syringe FLUSH SCH; +ceFAZolin 2 GM Vial ONE; +fentaNYL 100 MCG/2 ML SDV ONE
[2023-11-06] MEDS: Lactated Ringers 1,000 ML IV SCH (08:30)
[2023-11-06] MEDS ORDERED: Ondansetron 4 MG/2 ML SDV IVPUSH PRN (08:35)
[2023-11-06] MEDS ORDERED: HYDROmorphone 0.5 MG/0.5 ML Syringe IVPUSH PRN (08:35)
[2023-11-06] MEDS ORDERED: fentaNYL 100 MCG/2 ML SDV IVPUSH PRN (08:35)
[2023-11-06] MEDS: Acetaminophen 325 MG Tab PO ONE (08:48)
[2023-11-06] MEDS: oxyCODONE ER 10 MG TAB.ER PO ONE (08:48)
[2023-11-06] MEDS: Pregabalin 25 MG Cap PO ONE (08:48)
[2023-11-06] MEDS ORDERED: Lactated Ringers 1,000 ML ONE (09:41)
[2023-11-06] MEDS ORDERED: dexmedeTOMIDine HCl 200 MCG/2 ML SDV ONE (10:10)
[2023-11-06] MEDS ORDERED: Propofol 200 MG/20 ML SDV ONE (10:25)
[2023-11-06] MEDS: Morphine 8 MG, EPINEPHrine 0.3 MG, Cefuroxime 750 MG, Ketorolac 30 MG, Sodium Chloride ... PRN (10:33)
[2023-11-06] MEDS: Tranexamic Acid 1,000 MG/10 ML Vial ONE (10:34)
[2023-11-06] MEDS: Vancomycin 1 GM SDV ONE (10:35)
[2023-11-06] MEDS ORDERED: Ondansetron 4 MG/2 ML SDV ONE (10:53)
[2023-11-06] MEDS ORDERED: Ketorolac 30 MG/ML SDV ONE (10:56)
[2023-11-06] MEDS: Bupivacaine 0.25% 10 ML SDV ONE (11:08)
[2023-11-06] MEDS: Triamcinolone Acetonide 40 MG/ML 1 ML SDV ONE ×2 (11:08)
[2023-11-06] MEDS: oxyCODONE 5 MG Tab PO PRN (12:58)
[2023-11-06] MEDS ORDERED: oxyCODONE 5 MG Tab PO PRN (13:45)
[2023-11-06 14:43] VITALS: BP 128/71; PULSE 68
== END 2023-11-06 14:39 | disposition home or self-care (01) ==
LOC: JD.SDS 07:55
PROVIDERS: ATTEND Orthopaedic Surgery
DX: M17.0 Bilateral primary osteoarthritis of knee (principal); I10 Essential (primary) hypertension; E78.00 Pure hypercholesterolemia, unspecified; R73.03 Prediabetes; Z87.891 Personal history of nicotine dependence; Z79.899 Other long term (current) drug therapy; Z79.82 Long term (current) use of aspirin
CPT/HCPCS: 0055T; 20610; 27447; 64447; 73560; 97110; 97161; A9270; C1713; C1776; J0171; J0665; J0690; J0697; J1100; J1885; J2250; J2270; J2405; J2704; J2795; J3010; J3301; J3370; J7120; 01402; J3490

== ENCOUNTER 2024-02-19 10:17 | Day surgery (SDC) | payer BC ==
[~2024-02-19 10:17] MED LIST changes: -Dexamethasone 4 MG/ML 5 ML MDV ONE; -EPINEPHrine 1 MG/ML SDV ONE; -Ropivacaine 0.5% 5 MG/ML 30 ML SDV ONE
[2024-02-19] MEDS ORDERED: Dexamethasone 4 MG/ML 5 ML MDV ONE (10:21)
[2024-02-19] MEDS ORDERED: Lactated Ringers 1,000 ML ONE ×2 (10:23→13:21)
[2024-02-19] MEDS: Lactated Ringers 1,000 ML IV SCH (11:00)
[2024-02-19] MEDS ORDERED: droPERidol 5 MG/2 ML SDV IVPUSH PRN (11:07)
[2024-02-19] MEDS ORDERED: Ondansetron 4 MG/2 ML SDV IVPUSH PRN (11:07)
[2024-02-19] MEDS ORDERED: HYDROmorphone 0.5 MG/0.5 ML Syringe IVPUSH PRN (11:07)
[2024-02-19] MEDS: Pregabalin 25 MG Cap PO SCH (11:12)
[2024-02-19] MEDS: oxyCODONE ER 10 MG TAB.ER PO SCH (11:13)
[2024-02-19] MEDS: Acetaminophen 325 MG Tab PO SCH (11:13)
[2024-02-19] MEDS ORDERED: Ropivacaine 0.5% 5 MG/ML 30 ML SDV ONE (12:23)
[2024-02-19] MEDS ORDERED: dexmedeTOMIDine HCl 200 MCG/2 ML SDV ONE (12:24)
[2024-02-19] MEDS ORDERED: ePHEDrine 50 MG/ML SDV ONE (12:42)
[2024-02-19] MEDS ORDERED: Ketorolac 30 MG/ML SDV ONE (12:58)
[2024-02-19] MEDS ORDERED: Propofol 200 MG/20 ML SDV ONE (12:59)
[2024-02-19] MEDS ORDERED: Ondansetron 4 MG/2 ML SDV ONE (13:12)
[2024-02-19] MEDS: Morphine 8 MG, EPINEPHrine 0.3 MG, Cefuroxime 750 MG, Ketorolac 30 MG, Sodium Chloride ... PRN (13:24)
[2024-02-19] MEDS: VANCOmycin 1 GM SDV ONE (13:31)
[2024-02-19] MEDS: Tranexamic Acid 1,000 MG/10 ML Vial ONE (13:31)
[2024-02-19] MEDS: fentaNYL 100 MCG/2 ML SDV IVPUSH PRN (14:20)
[2024-02-19] MEDS: oxyCODONE 5 MG Tab PO PRN (15:13)
[2024-02-19 16:35] VITALS: BP 149/81; PULSE 84
== END 2024-02-19 17:07 | disposition home or self-care (01) ==
LOC: JD.SDS 10:17
PROVIDERS: ATTEND Orthopaedic Surgery
DX: M17.12 Unilateral primary osteoarthritis, left knee (principal); I10 Essential (primary) hypertension; E78.2 Mixed hyperlipidemia; F17.210 Nicotine dependence, cigarettes, uncomplicated; Z79.899 Other long term (current) drug therapy
CPT/HCPCS: 0055T; 27447; 64447; 73560; 97116; 97161; A9270; C1713; C1776; J0171; J0690; J0697; J1100; J1885; J2250; J2272; J2405; J2704; J2795; J3010; J7120; J3490